=== PATIENT | female | born 1950 | race Caucasian/White ===

== ENCOUNTER 2017-09-05 21:05 | Inpatient (IN) | payer MEDICARE ==
[2017-09-05 22:14] LABS: Sodium 142 mmol/L (135-148)
[2017-09-05 22:15] LABS: Mode NC; Modified Allen's Test POSITIVE; Vent NO
[2017-09-05] MEDS ORDERED: Cefepime 2 GM VIAL IVPB SCH (22:15)
[2017-09-05 22:34] LABS: Lactic Acid - Sepsis 1.1 mmol/L (0.5-2.2)
[2017-09-05 23:03] LABS: Anion Gap 11 mmol/L (10-20); BUN (Urea Nitrogen) 20 mg/dL (9.8-20.1); Calc. Creatinine Clearance 0 mL/min (70-130); Calcium 7.8 mg/dL (7.8-10.44); Carbon Dioxide 22 mmol/L (23-31); Chloride 111 mmol/L (98-107); Estimated GFR-MDRD 82
[2017-09-05] MEDS ORDERED: Potassium Chloride 20 MEQ/100 ML PREMIX BAG ONE (23:59)
[2017-09-06] MEDS ORDERED: Enoxaparin Sodium 40 MG/0.4 ML SYRINGE ONE (00:26)
[2017-09-06] MEDS ORDERED: NS 0.9% w/ 40 MEQ KCL 1,000 ML IV SCH (00:30)
[2017-09-06] MEDS ORDERED: Calcium Carbonate 500 MG ChewTAB PO PRN (01:14)
[2017-09-06] MEDS ORDERED: traMADol HCl 50 MG TAB PO PRN (01:14)
[2017-09-06] MEDS ORDERED: cloNIDine 0.1 MG TAB PO PRN (01:14)
[2017-09-06] MEDS ORDERED: hydrALAZINE 20 MG/ML VIAL SLOW IVP PRN (01:14)
[2017-09-06] MEDS ORDERED: Benzonatate 100 MG CAP PO PRN (01:14)
[2017-09-06] MEDS ORDERED: Senokot 8.6 MG TAB PO PRN ×2 (01:14)
[2017-09-06] MEDS ORDERED: Bisacodyl 5 MG TAB PO PRN ×2 (01:14)
[2017-09-06] MEDS ORDERED: Loratadine 10 MG TAB PO PRN (01:14)
[2017-09-06] MEDS ORDERED: Acetaminophen 325 MG TAB PO PRN (01:14)
[2017-09-06] MEDS ORDERED: Lorazepam 1 MG TAB PO PRN (01:14)
[2017-09-06] MEDS ORDERED: Nitroglycerin 0.4 MG TAB (25 Tab Bottle) SL PRN (01:14)
[2017-09-06] MEDS ORDERED: Mag-Al 1200 mg/1200 mg/30 ML UDCUP PO PRN (01:14)
[2017-09-06] MEDS ORDERED: Diabetic Tussin 200 MG/10 ML UDCUP PO PRN (01:14)
[2017-09-06] MEDS ORDERED: Vancomycin HCl 1 GM in Premix Bag 1 BAG IVPB SCH (01:45)
[2017-09-06] MEDS ORDERED: Senokot S 8.6-50 MG TAB PO PRN (02:08)
[2017-09-06] MEDS ORDERED: Cyclobenzaprine 10 MG TAB PO PRN (02:08)
[2017-09-06 04:39] LABS: Bilirubin Negative (Negative); Blood, Urine Negative (Negative); Glucose, Urine (Dipstick) Negative (Negative); Ketone, Urine 15 mg/dL (Negative); Nitrite Negative (Negative); Protein, Urine (Dipstick) 30 mg/dL (Neg-Trace); Urobilinogen 0.2 mg/dL (0.2-1.0)
[2017-09-06 04:41] LABS: Bacteria/HPF None Seen HPF (None Seen)
[2017-09-06 04:45] LABS: Band 19 % (5-11); Hematocrit 32.1 % (36.0-47.0); Mean Platelet Volume 8.3 fL (7.4-10.4); Neutrophil 78 % (42-75); Nucleated RBC 1 % (0); Red Blood Cell (RBC) Count 3.16 mill/uL (4.20-5.40); White Blood Cell (WBC) Count 8.5 thou/uL (4.8-10.8)
[2017-09-06 04:51] LABS: Iron 24 ug/dL (50-170)
[2017-09-06 04:52] LABS: Anion Gap 10 mmol/L (10-20); BUN (Urea Nitrogen) 18 mg/dL (9.8-20.1); Calc. Creatinine Clearance 61 mL/min (70-130); Calcium 7.6 mg/dL (7.8-10.44); Carbon Dioxide 22 mmol/L (23-31); Chloride 114 mmol/L (98-107); Estimated GFR-MDRD Greater than 90
[2017-09-06 05:02] LABS: Oval Fat Bodies/HPF None Seen HPF (None Seen); RBC/HPF 0-3 HPF (0-3); Renal Epithelial 0-3 HPF (0-3); Sperm/HPF None Seen HPF (None Seen); Transitional Epithelial NONE SEEN HPF (0-3); Trichomonas/HPF None Seen HPF (None Seen)
[2017-09-06 05:03] LABS: Yeast-All Forms 4+ HPF (None Seen)
--- NOTE | 2017-09-06 06:00 | HP ---
DATE OF ADMISSION: 09/06/2017 PRIMARY CARE PHYSICIAN: Chucho Lucero M.D. CHIEF COMPLAINT: Generalized worsening weakness, shortness of breath, cough, subjective fever with chills. HISTORY OF PRESENT ILLNESS: Ms. Price is a 67-year-old female with extensive past medical history of multiple abdominal surgeries including Rocco-en-Y gastrectomy as well as dumping syndrome and hist ory of esophageal perforation in 1998 during an endoscopy, who presented to the [facility] with the above-mentioned complaints. History is mainly obtained by the patient herself and supplemented by her present in the room. Electronic medical records have been reviewed. Tamika acuña was last admitted to our facility in 05/2017 when she had fallen and broken her hip and underwent a surgical fixation and was transferred to rehab. Ms. Price reports that she has been feeling poorly for the entire month of August. She was diagno sed with pneumonia in the beginning of the month and was treated with Z-Efrain. She did have some impr ovement with it, but when she went to follow up with her primary care physician afterwards, she was represcribed a Z-Efrain for some reason. She did once again feel better somewhat. The patient was re-prescribed IV injection of Rocephin and Augmentin for another 7 days during her t hird visit to her primary care physician. Once again, the patient had some improvement in her sympt oms, but reports that she has been feeling very bad for the last few days. She feels progressively getting weaker with poor appetite. She also has cough, subjective fever up to 100.2 or 4 with short ness of breath. She also complains of some chest pain, which is worse upon palpation. She denies a ny nausea, vomiting, or diarrhea. She does report that she has to crush all her pills and take them slowly and is not able to eat bigger pieces of meat. She denies any choking or coughing during eat ing, however. Upon presentation to the emergency room, she was found to be hypoxic with oxygen saturation of 89% o n room air, blood pressure on the lower side 94/53 and has lower systolic in the 80s. Her normal bl ood pressure systolic 90s. She underwent a chest x-ray at the outside emergency room, which showed right-sided pneumonia. She was transferred here to our facility and prior to transfer, she received multiple antibiotics including clindamycin, vancomycin, and Rocephin in addition to steroids and ne bulizers. Here she received cefepime in addition in our emergency room. Because of her relative hypotension and hypoxia, she is being admitted to [facility] at this time. The pa sharyn has adequate oxygen saturation at this time on nasal cannula and is rather stable. PAST MEDICAL HISTORY: 1. Hypothyroidism. 2. History of esophageal perforation. 3. Placement of a Mediport due to poor IV access. 4. Chronic dumping syndrome. 5. Orthostatic hypotension. 6. Chronic low back pain secondary to lumbar radiculopathy. 7. Chronic headache. She is under the care of a neurologist. 8. Anxiety, depression, and bipolar illness. 9. Vitamin D deficiency. 10. Seizure disorder. PAST SURGICAL HISTORY: 1. History of Rocco-en-Y drainage procedure, taken down of a Deisy fundoplication. 2. Appendectomy. 3. Tonsillectomy. 4. Cholecystectomy. 5. Thyroidectomy. 6. Hysterectomy with bilateral salpingo-oophorectomy. 7. Placement of a vascular access, right upper anterior chest. 8. Sympathetic nerve block. 9. Colonoscopy in 2016. ALLERGIES: Include VICODIN, NORCO, SULFA DRUGS, IODINE, IMITREX, LEVAQUIN, TOPAMAX, and ZOFRAN. SOCIAL HISTORY: The patient is and lives with her and her takes care of her at home, helping with her ADLs and IADLs. CODE STATUS: FULL CODE. Discussed with the patient. FAMILY HISTORY: Patient denies any history of premature coronary artery disease or stroke in her kelsey. HOME MEDICATION: Extensive list of home medications as follows Flexeril 10 mg every 8 hours as need ed, amitriptyline 10 mg b.i.d., vitamin B12 of 5000 mcg daily, vitamin D3 of 5000 units daily, calci um 600 mg p.o. daily, vitamin C 500 mg p.o. b.i.d., Valium 10 mg daily, Dilaudid 2 mg p.o. b.i.d., m ultivitamin daily, estrogen 0.625 mg p.o. daily, Prevacid 30 mg daily, Motrin as needed q.6 hours, M iraLax 17 grams daily, levothyroxine 125 mcg daily, Seroquel 400 mg at bedtime, primidone 50 mg at b edtime, Keppra 750 mg p.o. b.i.d., Ambien 10 mg at bedtime as needed, and Senokot as needed. REVIEW OF SYSTEMS: The following complete review of systems was negative, unless otherwise mentione d in the HPI or below: CONSTITUTIONAL: Weight loss or gain, ability to conduct usual activities. SKIN: Rash, itching. EYES: Double vision, pain. ENT/MOUTH: Nose bleeding, neck stiffness, pain, tenderness. CARDIOVASCULAR: Palpitations, dyspnea on exertion, orthopnea. RESPIRATORY: Shortness of breath, wheezing, cough, hemoptysis, fever or night sweats. GASTROINTESTINAL: Poor appetite, abdominal pain, heartburn, nausea, vomiting, constipation, or diar ai. GENITOURINARY: Urgency, frequency, dysuria, nocturia. MUSCULOSKELETAL: Pain, swelling. NEUROLOGIC/PSYCHIATRIC: Anxiety, depression. ALLERGY/IMMUNOLOGIC: Skin rash, bleeding tendency. It is negative for except those mentioned in the history and physical. LABORATORY AND DIAGNOSTIC DATA: CBC shows WBCs at 11.8 with 92% neutrophils, hemoglobin 10.6, plate let count of 143, high MCV and MCH, D-dimer elevated to 2.19. PT 15. ABG done in the emergency shantell m showed pH of 7.36, pCO2 of 39, pO2 of 130 on 2 liters nasal cannula. Serum chemistries show serum potassium 4.1, sodium 141, bicarbonate 22, blood sugar 155, creatinine 0.71, BNP 144, TSH 5.67. Po rtable chest x-ray by my review shows right-sided interstitial and alveolar opacification, possible pneumonia. PHYSICAL EXAMINATION: VITAL SIGNS: Temperature 97.6, pulse of 95, respirations 16, saturating 97% on room air, blood pres sure 116/47. GENERAL: She appears weak, cachectic, and pale, but otherwise in no acute distress. Awake, alert, oriented x3. HEENT: Mucous membrane is moist and pink. No oropharyngeal exudate or erythema. No evidence of or al thrush. The patient reports that she was recently treated with Diflucan and nystatin for oral th vaughn. Head is normocephalic, atraumatic. NECK: Supple without any lymphadenopathy, JVD, or bruit. CHEST: Clear to auscultation without any wheezing, rales, or rhonchi. Rate and rhythm is regular w ithout any murmur, rubs, or gallops. Breath sound was somewhat decreased in the right lung at the b ases. ABDOMEN: Soft, nontender, nondistended, positive bowel sounds. EXTREMITIES: Free of any cyanosis, clubbing, or edema. NEUROLOGIC: Nonfocal, affect, appears depressed. SKIN: Shows few bruises on her arms. Otherwise, feels warm and dry to touch. NEUROLOGIC: Nonfocal. IMPRESSION AND PLAN: 1. Hypoxic respiratory failure, likely secondary to pneumonia. Given the patient's elevated D-dime r, a VQ scan has been ordered. She has received 1 dose of Lovenox 1 mg/kg in the emergency room. C linical likelihood of pulmonary embolism is low at this time. She will be treated with broad spectr um IV antibiotics for pneumonia. Given her extensive history of gastrectomy and difficulty handling bigger pills, aspiration pneumonia remains a bigger concern. 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 The patient has 3 rounds of antibiotics without any improvement. We will also check her for influenza and check blood cultures given the presence of a Mediport in her presentati on with a somewhat hypotension and hypoxia. 2. Severe deconditioning. We will consult occupational therapy and physical therapy for further ev aluation. The patient may benefit from rehabilitation prior to discharge home. The patient is some what anemic with macrocytosis. She takes vitamin B12 and folic acid supplement. We will check her iron indices and replace iron if needed. 3. Hypothyroidism. The patient's TSH is somewhat on the higher side. We will continue her levothy roxine at this time and sent for free T3 and T4. She may benefit from increasing the dose of levoth yroxine prior to discharge if her free T3 and T4 are indeed low. 4. History of seizure disorder. We will restart her Keppra as well as her primidone. The patient is currently seizure free. 5. Chronic pain. The patient is unfortunately on high doses of Dilaudid as well as has been using Flexeril, ibuprofen on as needed basis. She also seems to be taking Valium on a daily basis. I ernesto pect that some of her weakness is secondary to chronic pain medications. We will try to minimize an d use only as needed medications. Please note that she reports an allergy to NORCO. 6. History of bipolar disorder. Continue home medications of Khadijahl. 7. History of dumping syndrome, small frequent meals as the patient does at home. 8. History of Vitamin D deficiency. Continue with her home medications of Vitamin D supplement. 9. History of esophageal perforation. At this time, the patient is rather stable and I doubt that she has recurrence of the perforation. However, given the patient's symptoms of pain in her throat, consideration should be given to her CT scan or repeat EGD by auto air conditioning mechanic. I have given the patient the option and at this time, she wants to defer it further and would rather go see her karla roenterologist, Dr. Almaraz at [facility]. CODE STATUS: FULL CODE. DISPOSITION: The patient will be admitted to IMCU for hypoxia and hypotension with pneumonia and ru le out sepsis. Further management will depend upon her clinical course. Estimated length of stay a t this time is at least 2 to 3 midnights.
[2017-09-06] MEDS: Levothyroxine Sodium 125 MCG TAB PO SCH (06:02)
[2017-09-06] MEDS ORDERED: FLU VACC TS2017-18 (>65YR) 0.5 ML SYRINGE IM ONE (09:00)
[2017-09-06] MEDS: Amitriptyline HCl 10 MG TAB PO SCH ×2 (09:41→22:06)
[2017-09-06] MEDS: Ascorbic Acid 500 mg Chewable Tablet PO SCH ×2 (09:41→22:07)
[2017-09-06] MEDS: Multivitamin W/ Minerals 1 TAB PO SCH (09:41)
[2017-09-06] MEDS: Famotidine 20 MG TAB PO SCH ×2 (09:41→22:06)
[2017-09-06] MEDS: Calcium Carbonate 600 MG TAB PO SCH (09:42)
[2017-09-06] MEDS: levETIRAcetam 500 mg/5 ml Oral Solution PO SCH ×2 (09:43→22:05)
[2017-09-06] MEDS: Enoxaparin Sodium 30 MG/0.3 ML SYRINGE SC SCH (09:52)
[2017-09-06] MEDS: Cyanocobalamin (Vitamin B-12) 1,000 MCG TAB PO SCH (09:59)
[2017-09-06] MEDS ORDERED: Cefepime 2 GM in Sodium Chloride 0.9% 100 ML IVPB SCH (10:00)
[2017-09-06] MEDS: HYDROcodone/Acetaminophen 5/325 mg Tablet PO PRN (10:11)
--- NOTE | 2017-09-06 10:13 | CON ---
DATE OF CONSULTATION: 09/06/2017 CONSULTING PHYSICIAN: Dr. Flores. REASON FOR CONSULTATION: Pneumonia. HISTORY OF PRESENT ILLNESS: This is a 67-year-old female from the [place] area. She was taken to the emergency room there yesterday with complaints of cough and shortness of breath. She was di agnosed with pneumonia. She tells me she has had pneumonia constantly since June. She was initia lly treated with a Z-Efrain. She went back to her doctor and was prescribed something different, which was not an antibiotic several days later. Eventually, she was seen by Dr. Lucero's partner and was given an IM injection of Rocephin and was prescribed Augmentin. She could not swallow the Augmenti n pills and did not think any have gotten into her stomach. She had not had any fever until the day before admission when she says she got up to 100.9. She has been coughing up greenish sputum. She apparently has dysphagia for pills, but says she can eat and drink okay. PAST MEDICAL HISTORY: 1. Chronic pain. 2. Esophageal perforation. 3. MediPort placement due to poor IV access. 4. History of Rocco-en-Y drainage procedure after takedown of a Deisy fundoplication. 5. Chronic dumping syndrome. 6. Radiculopathy. 7. Bipolar disorder. 8. Tonsillectomy. 9. Appendectomy. 10. Cholecystectomy. 11. Thyroidectomy. 12. Hysterectomy with bilateral salpingo-oophorectomy. 13. Colonoscopy. ALLERGIES: VICODIN, NORCO, SULFA DRUGS, IODINE, IMITREX, LEVAQUIN, TOPAMAX, ZOFRAN. SOCIAL HISTORY: Does not smoke, does not consume alcohol. Lives with her . FAMILY MEDICAL HISTORY: Unremarkable. MEDICATIONS: Prior to admission, Flexeril, amitriptyline, vitamin B12, vitamin D3, calcium, vitamin C, Valium, Dilaudid, multivitamin, estrogen, Prevacid, Motrin, MiraLax, levothyroxine, Seroquel, pr imidone, Keppra, Ambien, Senokot. REVIEW OF SYSTEMS: Positive for pain, shortness of breath, cough, and congestion. PHYSICAL EXAMINATION: VITAL SIGNS: Temperature 97.8, pulse 85, respirations 16, O2 sat 100%, blood pressure 123/65. HEENT: Unremarkable. NECK: Without adenopathy or JVD. LUNGS: She has a few inspiratory crackles on the right base; left side is clear. CARDIAC: S1, S2 regular, without murmur. ABDOMEN: Soft, nontender. Multiple surgical scars present. EXTREMITIES: No clubbing, cyanosis, or edema. LABORATORY DATA: White blood cell count 8.5, hematocrit 32.1, platelet count 151. D-dimer 2.2. PH 7.36, PCO2 of 39, PO2 of 130, that was on 2 liters nasal cannula. Sodium 142, potassium 4.4, chlor kerrie 114, CO2 of 22, BUN 18, creatinine is 0.6, glucose 171. X-RAY FINDINGS: Chest x-ray shows some scattered right-sided infiltrative changes. She also has a MediPort in place. ASSESSMENT: 1. Pneumonia. 2. Fever. 3. Chronic pain. 4. History of multiple medical problems as listed above. RECOMMENDATIONS: 1. I agree with a ventilation perfusion scan. 2. I agree with current IV antibiotics, cefepime and vancomycin. 3. I will follow the patient with you.
[2017-09-06] MEDS: Cefepime 2 GM, Syringe 2.5 ML in Sterile Water 10 ML SLOW IVP SCH ×2 (11:20→22:05)
[2017-09-06] MEDS ORDERED: Chloraseptic Spray 180 ml Bottle PO PRN (12:11)
[2017-09-06] MEDS ORDERED: Hyoscyamine Sulfate SL 0.125 mg Tablet SL PRN (12:11)
[2017-09-06] MEDS ORDERED: Ibuprofen 200 MG TAB PO PRN (12:11)
[2017-09-06] MEDS ORDERED: Zolpidem Tartrate 5 MG TAB PO PRN (12:19)
--- NOTE | 2017-09-06 14:18 | NM ---
VENTILATION PERFUSION STUDY: Date: 09/06/17 HISTORY: Dyspnea. RADIOPHARMACEUTICAL: 6.2 mCi technetium-99m labeled MAA, IV, for the perfusion portion of the study, and 10.2 mCi Xenon-1 33, gas inhaled. FINDINGS: On the anterior images of the ventilation, as well as perfusion study, there is a small rounded phot openic defect seen in the lateral right upper lung zone which corresponds to MediPort noted on recen t chest x-ray. There is otherwise no ventilation defect identified. Perfusion imaging demonstrates q uestion of very tiny subsegmental defects at each lung base with questionable matched defect on the ventilation portion of the study. No additional segmental or subsegmental perfusion defect is seen w ithin the lungs bilaterally. Chest x-ray on 09/05/17 shows interstitial opacities in the right lung. IMPRESSION: Low probability for pulmonary embolus. POS: TABBY
--- NOTE | 2017-09-06 16:04 | RAD ---
MODIFIED BARIUM SWALLOW WITH SPEECH THERAPIST: History: 67-year-old female with history of dysphagia and feeding difficulty. Fluoroscopy time: 2.1 minutes with a dose of 1.004 mGy*cm\S\2. FINDINGS: Patient was given multiple consistencies and evaluated in upright and lateral projection. There was some minimal penetration with thin liquids and thicker liquids, particularly with cup sip. There is considerable pooling within the vallecula of all sequences with patient having difficulty clearing t his with re-swallow. No angella aspiration. IMPRESSION: Penetration, particularly with cup swallow, with pooling in the vallecula with patient having diffic ulty clearing this with re-swallow. For additional findings and recommendations, please see speech therapy report. POS: TABBY
[2017-09-06] MEDS: Primidone 50 MG TAB PO SCH (22:06)
[2017-09-06] MEDS: HYDROmorphone 2 MG TAB PO SCH (22:07)
[2017-09-06] MEDS: Polyethylene Glycol 3350 17 GM Packet PO SCH (22:08)
[2017-09-07] MEDS: Vancomycin HCl 750 MG in Sodium Chloride 0.9% 250 ML 250 ML IVPB SCH (01:10)
[2017-09-07] MEDS: Levothyroxine Sodium 125 MCG TAB PO SCH (06:10)
[2017-09-07] MEDS: Enoxaparin Sodium 30 MG/0.3 ML SYRINGE SC SCH (08:38)
[2017-09-07] MEDS: HYDROmorphone 2 MG TAB PO SCH ×2 (08:38→21:14)
[2017-09-07] MEDS: Ascorbic Acid 500 mg Chewable Tablet PO SCH ×2 (08:39→21:18)
[2017-09-07] MEDS: Amitriptyline HCl 10 MG TAB PO SCH ×2 (08:39→21:34)
[2017-09-07] MEDS: Cyanocobalamin (Vitamin B-12) 1,000 MCG TAB PO SCH (08:39)
[2017-09-07] MEDS: Calcium Carbonate 600 MG TAB PO SCH (08:40)
[2017-09-07] MEDS: Famotidine 20 MG TAB PO SCH ×2 (08:40→21:13)
[2017-09-07] MEDS: Multivitamin W/ Minerals 1 TAB PO SCH (08:40)
[2017-09-07] MEDS: levETIRAcetam 500 mg/5 ml Oral Solution PO SCH ×2 (08:41→21:35)
--- NOTE | 2017-09-07 09:00 | PRG ---
DATE OF SERVICE: 09/07/2017 SUBJECTIVE: She is doing well, coughing less than yesterday. PHYSICAL EXAMINATION: VITAL SIGNS: Temperature 97.7, pulse 89, respiration 20, 95%, blood pressure 128/66. HEENT: Unremarkable. NECK: No JVD. CHEST: Clear. CARDIAC: S1 and S2 regular. ABDOMEN: Soft. EXTREMITIES: No edema. LABORATORY DATA: No new labs were reported today. ASSESSMENT: 1. Right upper lobe pneumonia. 2. Fever. 3. Chronic pain. PLAN: She can transfer out to the floor for continuation of her IV antibiotics. Her ventilation pe rfusion scan was low probability. Therefore, she does not require anything beyond prophylactic anti coagulation to prevent DVT.
[2017-09-07] MEDS: HYDROcodone/Acetaminophen 5/325 mg Tablet PO PRN ×2 (11:01→15:10)
[2017-09-07] MEDS: Cefepime 2 GM, Syringe 2.5 ML in Sterile Water 10 ML SLOW IVP SCH ×2 (11:04→21:43)
--- NOTE | 2017-09-07 14:25 | PDOC.PN ---
- Subjective Encounter Start Date: 09/07/17 Encounter Start Time: 07:40 Pt seen for followup re: pneumonia. Reports cough. denies chest pain, shortness of breath, fevers or chills. - Objective MAR Reviewed: Yes Vital Signs & Weight: Vital Signs (12 hours) Temp Pulse Resp BP Pulse Ox 09/07/17 12:13 97.5 F L 83 16 95 09/07/17 11:50 97.5 F L 83 16 147/81 H 95 09/07/17 11:10 98.0 F 87 20 128/80 96 09/07/17 08:00 97.7 F 89 20 95 09/07/17 07:04 97.7 F 89 20 128/66 95 09/07/17 04:00 89 16 134/74 97 Weight Admit Weight 99 lb 1.6 oz Weight 99 lb 1.6 oz I&O: 09/06/17 09/07/17 09/08/17 06:59 06:59 06:59 Intake Total 1057 1380 Output Total 130 350 Balance 927 1030 Result Diagrams: 09/06/17 04:20 09/06/17 04:20 EKG Reviewed by me: Yes (Tele: NSR) Phys Exam - Physical Examination Constitutional: NAD HEENT: PERRLA, moist MMs, sclera anicteric, oral pharynx no lesions Neck: no nodes, no JVD, supple, full ROM Respiratory: no wheezing, no rales, no rhonchi, clear to auscultation bilateral Cardiovascular: RRR, no rub Gastrointestinal: soft, non-tender, no distention, positive bowel sounds Musculoskeletal: pulses present Neurological: moves all 4 limbs Lymphatic: no nodes Psychiatric: normal affect, A&O x 3 Skin: no rash, normal turgor, cap refill <2 seconds Dx/Plan (1) Pneumonia involving right lung Code(s): J18.9 - PNEUMONIA, UNSPECIFIED ORGANISM Status: Acute (2) Seizure disorder Code(s): G40.909 - EPILEPSY, UNSP, NOT INTRACTABLE, WITHOUT STATUS EPILEPTICUS Status: Chronic (3) Hypothyroidism Code(s): E03.9 - HYPOTHYROIDISM, UNSPECIFIED Status: Chronic (4) Chronic headache Code(s): R51 - HEADACHE Status: Chronic (5) History of dumping syndrome Code(s): Z87.19 - PERSONAL HISTORY OF OTHER DISEASES OF THE DIGESTIVE SYSTEM Status: Chronic - Plan continue antibiotics, PT/OT, speech therapy, DVT proph w/lovenox * . Continue IV cefepime, IV vancomycin. Continue primidone, keppra. Continue synthroid. Ambulate pt. Review of Systems - Review of Systems Constitutional: negative: Fever, Chills, Sweats, Weakness, Malaise Respiratory: negative: Cough, Dry, Shortness of Breath, Hemoptysis, SOB with Excertion, Pleuritic Pain, Sputum, Wheezing Cardiovascular: negative: Chest Pain, Palpitations, Orthopnea, Paroxysmal Noc. Dyspnea, Edema, Light Headedness Gastrointestinal: negative: Nausea, Vomiting, Abdominal Pain, Diarrhea, Constipation, Melena, Hematochezia Genitourinary: negative: Dysuria, Frequency, Incontinence, Hematuria, Retention - Medications/Allergies Allergies/Adverse Reactions: Allergies Allergy/AdvReac Type Severity Reaction Status Date / Time Iodinated Contrast- Oral and Allergy Verified 05/08/17 22:24 IV Dye ondansetron Allergy Verified 05/09/17 02:24 [From Zofran (as hydrochloride)] Phenothiazines Allergy Verified 05/09/17 02:24 povidone-iodine Allergy Verified 05/09/17 02:24 prochlorperazine Allergy Verified 05/09/17 02:24 Sulfa (Sulfonamide Allergy Verified 05/09/17 02:24 Antibiotics) sulfisoxazole Allergy Verified 05/09/17 02:24 sumatriptan Allergy Verified 05/09/17 02:24 Thioxanthenes Allergy Verified 05/09/17 02:25 Medications: Current Medications Acetaminophen (Tylenol) 650 mg PO Q4H PRN PRN Reason: Headache/Fever or Pain Hydrocodone Bitart/Acetaminophen (Assaria 5/325) 1 tab PO Q4H PRN PRN Reason: Moderate Pain (4-6) Last Admin: 09/07/17 11:01 Dose: 1 tab Al Hydroxide/Mg Hydroxide (Maalox) 30 ml PO Q6H PRN PRN Reason: Heartburn or Indigestion Amitriptyline HCl (Elavil) 10 mg PO BID [facility] Last Admin: 09/07/17 08:39 Dose: 10 mg Ascorbic Acid (Vitamin C) 500 mg PO BID [facility] Last Admin: 09/07/17 08:39 Dose: 500 mg Benzonatate (Tessalon) 100 mg PO Q4H PRN PRN Reason: Cough Bisacodyl (Dulcolax) 10 mg PO DAILYPRN PRN PRN Reason: Constipation Calcium Carbonate (Tums) 1,000 mg PO Q4H PRN PRN Reason: Heartburn or Indigestion Calcium Carbonate (Caltrate) 600 mg PO DAILY [facility] Last Admin: 09/07/17 08:40 Dose: 600 mg Cholecalciferol (Vitamin D3) 5,000 units PO DAILY [facility] Last Admin: 09/07/17 08:40 Dose: 5,000 units Clonidine (Catapres) 0.1 mg PO Q4H PRN PRN Reason: Systolic BP > 160 Cyanocobalamin (Vitamin B-12) 5,000 mcg PO DAILY [facility] Last Admin: 09/07/17 08:39 Dose: 5,000 mcg Cyclobenzaprine HCl (Flexeril) 10 mg PO Q8H PRN PRN Reason: Anxiety/Sleep/Spasm Enoxaparin Sodium (Lovenox) 30 mg SC 0900 [facility] Last Admin: 09/07/17 08:38 Dose: 30 mg Famotidine (Pepcid) 20 mg PO BID [facility] Last Admin: 09/07/17 08:40 Dose: 20 mg Guaifenesin (Robitussin Sf) 200 mg PO Q4H PRN PRN Reason: Cough Hydralazine HCl (Apresoline) 10 mg SLOW IVP Q4H PRN PRN Reason: Systolic BP > 170 Hydromorphone HCl (Dilaudid) 2 mg PO BID [facility] Last Admin: 09/07/17 08:38 Dose: 2 mg Hyoscyamine Sulfate (Levsin Sl) 0.125 mg SL Q6HR PRN PRN Reason: Pain Vancomycin HCl 750 mg/ Sodium (Chloride) 250 mls @ 250 mls/hr IVPB 0100 [facility] Last Admin: 09/07/17 01:10 Dose: 250 mls Cefepime HCl 2 gm/ Syringe 2.5 (ml/ Sterile Water) 12.5 mls @ 150 mls/hr SLOW IVP 1000,2200 [facility] Last Admin: 09/07/17 11:04 Dose: 12.5 mls Ibuprofen (Motrin) 400 mg PO Q6H PRN PRN Reason: Pain Iron/Minerals/Multivitamins (Theragran M) 1 tab PO DAILY [facility] Last Admin: 09/07/17 08:40 Dose: 1 tab Levetiracetam (Keppra Oral Solution) 750 mg PO BID [facility] Last Admin: 09/07/17 08:41 Dose: 750 mg Levothyroxine Sodium (Synthroid) 125 mcg PO 0600 [facility] Last Admin: 09/07/17 06:10 Dose: 125 mcg Loratadine (Claritin) 10 mg PO DAILYPRN PRN PRN Reason: Sinus Symptoms Lorazepam (Ativan) 1 mg PO Q4H PRN PRN Reason: Anxiety/Agitation Nitroglycerin (Nitrostat) 0.4 mg SL Q5MIN PRN PRN Reason: Chest Pain Pantoprazole Sodium (Protonix) 40 mg PO DAILY [facility] Last Admin: 09/07/17 08:39 Dose: 40 mg Phenol (Chloraseptic [place] 180 Ml Bot) 1 ml PO BIDPRN PRN PRN Reason: Sore Throat Last Admin: 09/06/17 22:05 Dose: 1 spr Polyethylene Glycol (Miralax) 17 gm PO [facility] Last Admin: 09/06/17 22:08 Dose: Not Given Primidone (Mysoline) 50 mg PO HS [facility] Last Admin: 09/06/17 22:06 Dose: 50 mg Quetiapine Fumarate (Seroquel) 400 mg PO HS [facility] Last Admin: 09/06/17 22:04 Dose: 400 mg Senna (Senokot) 2 tab PO HSPRN PRN PRN Reason: Constipation Senna/Docusate Sodium (Senokot S) 1 tab PO BIDPRN PRN PRN Reason: constipation Sodium Chloride (Flush - Normal Saline) 10 ml IVF Q12HR [facility] Last Admin: 09/07/17 08:41 Dose: 10 ml Sodium Chloride (Flush - Normal Saline) 10 ml IVF PRN PRN PRN Reason: Saline Flush Tramadol HCl (Ultram) 50 mg PO Q4H PRN PRN Reason: Moderate Pain (4-6) Zolpidem Tartrate (Ambien) 10 mg PO HS PRN PRN Reason: Insomnia
[2017-09-07] MEDS: Phenazopyridine HCl 97.5 MG TABLET PO SCH (21:13)
[2017-09-07] MEDS: Polyethylene Glycol 3350 17 GM Packet PO SCH (21:18)
[2017-09-07] MEDS: Primidone 50 MG TAB PO SCH (21:33)
[2017-09-08 00:34] LABS: Vancomycin, Trough 9.8 ug/mL
[2017-09-08] MEDS ORDERED: Vancomycin HCl 1 GM in Premix Bag 1 BAG IVPB SCH (01:00)
[2017-09-08] MEDS: Levothyroxine Sodium 125 MCG TAB PO SCH (06:12)
[2017-09-08 07:51] VITALS: BP 137/76; TEMP 98
[2017-09-08] MEDS: Vancomycin HCl 750 MG in Sodium Chloride 0.9% 250 ML 250 ML IVPB SCH (09:20)
[2017-09-08] MEDS: HYDROmorphone 2 MG TAB PO SCH (09:26)
[2017-09-08] MEDS: Amitriptyline HCl 10 MG TAB PO SCH (09:27)
[2017-09-08] MEDS: Famotidine 20 MG TAB PO SCH (09:27)
[2017-09-08] MEDS: levETIRAcetam 500 mg/5 ml Oral Solution PO SCH (09:28)
[2017-09-08] MEDS: Phenazopyridine HCl 97.5 MG TABLET PO SCH (09:28)
[2017-09-08] MEDS: Enoxaparin Sodium 30 MG/0.3 ML SYRINGE SC SCH (09:28)
[2017-09-08] MEDS: Multivitamin W/ Minerals 1 TAB PO SCH (09:28)
[2017-09-08] MEDS: Calcium Carbonate 600 MG TAB PO SCH (09:29)
[2017-09-08] MEDS: Cyanocobalamin (Vitamin B-12) 1,000 MCG TAB PO SCH (09:29)
[2017-09-08] MEDS: Ascorbic Acid 500 mg Chewable Tablet PO SCH (09:29)
--- NOTE | 2017-09-08 09:37 | PRG ---
DATE OF SERVICE: 09/08/2017 SUBJECTIVE: The patient seems to be doing well except for thrush. PHYSICAL EXAMINATION: VITAL SIGNS: Temperature is 98.0, pulse 90, respirations 16, O2 sat 97%, and blood pressure 137/76. HEENT: Remarkable for white papular lesions on the tongue. NECK: Without adenopathy or JVD. CHEST: Clear without wheezing. CARDIAC: S1 and S2 regular. ABDOMEN: Soft. EXTREMITIES: No edema. LABORATORY DATA: No labs were obtained today. ASSESSMENT: 1. Right upper lobe pneumonia. 2. Chronic pain. 3. Thrush. 4. Aspiration. PLAN: 1. Diflucan for 3 days for the thrush. I would be okay with her cycling over to oral antibiotics - I would think Omnicef would be a reasonable choice. 2. Should be stable for discharge at any time.
[2017-09-08] MEDS: Cefepime 2 GM, Syringe 2.5 ML in Sterile Water 10 ML SLOW IVP SCH (09:38)
--- NOTE | 2017-09-08 11:06 | PQF ---
LE CAVAZOS AKASH M MD [id number] [facility]- B05 [id number] CLINICAL DOCUMENTATION IMPROVEMENT CLARIFICATION FORM: ICD-10 Updated PLEASE DO AN ADDENDUM TO THE PROGRESS NOTE WITH ANY DOCUMENTATION UPDATES OR ADDITIONS AND CARRY THROUGH TO DC SUMMARY. THANK YOU. DATE: 09-08-17 ATTN: DR. ARROYO Please exercise your independent, professional judgment in responding to the clarification form. Clinical indicators are provided on the bottom of this form for your review Please check appropriate box(s): [ ] Aspiration Pneumonia [ ] Empirically treating Gram Negative Pneumonia [ ] Empirically treating Anaerobic Pneumonia [ ] Pneumonia secondary to (specify organism / underlying disease) [ ] Simple Pneumonia (community acquired - nosocomial) [ ] Pneumonia of unknown etiology [ ] Other diagnosis [ ] Unable to determine In addition, please specify: Present on Admission (POA): [ ] Yes [ ] No [ ] Unable to determine For continuity of documentation, please document condition throughout progress notes and discharge summary. Thank You. CLINICAL INDICATORS - SIGNS / SYMPTOMS / LABS H&P: GIVEN HER EXTENSIVE HX OF GASTRECTOMY AND DIFFICULTY HANDLING BIGGER PILLS , ASPIRATION PNA REMAINS A BIGGER CONCERN HYPOXIC RESP FAILURE D/T PNA R/O SEPSIS 09-08 PN PULM: RIGHT UPPER LOBE PNA ASPIRATION THRUSH RISK FACTORS H&P: HX BORIS-EN-Y GASTRECTOMY; DUMPING SYNDROME HX ESOPHAGEAL PERFORATION SEVERE DECONDITIONING CACHECTIC / WEAK TREATMENTS: CPOE: CU MAR - ABX MAXIPIME 09-06 VANCOMYCIN 09-07 MODIFIED BARIUM SWALLOW - PENETRATION, PARTICULARLY W/ CUP SWALLOW, W/ POOING IN THE VALLECULA W/ PT HAVING DIFFICULTY CLEARING THIS W/ RE-SWALLOW. THANK YOU AISHA (This form is maintained as a part of the permanent medical record) 2014 [employer]. All Rights Reserved Aisha Clark RN, BS [email or web address] Cell HELEN HAYES HOSPITALSachin
--- NOTE | 2017-09-08 11:21 | CON ---
DATE OF CONSULTATION: 09/08/2017 CHIEF COMPLAINT: Trouble swallowing. HISTORY OF PRESENT ILLNESS: Ms. Price is a 67-year-old woman who has been treated for pneumonia ov er the last month. She was admitted on 09/06/2017 with ongoing symptoms of weakness, cough and shor tness of breath. She was treated with IV antibiotics. She has been on oral antibiotics prior to th at earlier in the month. GI was consulted, because she has been having trouble swallowing. She had a swallowing study by Speech Pathology and was not felt to be safe for liquid or solid consistencie s due to aspiration risk. The patient decided she would not want alternative means of feeding and t herefore has chosen to discontinue oral diet with optimal textures for aspiration risk. She does co mplain that she has had dysphagia for the last one week. When she swallows pills or meat, she feels like food gets stuck a little above the level of the sternal notch. She has noticed thrush over th e last week. PAST MEDICAL HISTORY: Hypothyroidism, seizure disorder, bipolar disorder, chronic back pain and hea dache, dumping syndrome. PAST SURGICAL HISTORY: She had a cholecystectomy. She had an esophageal perforation and problems w ith a Deisy fundoplication and ultimately underwent a Rocco-en-Y gastrectomy. She has had tonsillec fernando, appendectomy. She reports colonoscopy a few months ago by Dr. Almaraz. FAMILY HISTORY: Negative for GI malignancies. SOCIAL HISTORY: No alcohol, tobacco or drugs. Her assists her with her activities of daily living. ALLERGIES: VICODIN, NORCO, SULFA, IODINE, IMITREX, LEVAQUIN, TOPAMAX, ZOFRAN. CURRENT MEDICATIONS: Cefepime, calcium carbonate, amitriptyline, vitamin C, vitamin D and B12, enox aparin, famotidine, fluconazole 100 mg p.o. daily, multiple vitamin with iron, Keppra, levothyroxine , pantoprazole, polyethylene glycol, primidone, quetiapine, vancomycin. REVIEW OF SYSTEMS: Negative x10 systems reviewed except as stated in the history of present illness . PHYSICAL EXAMINATION: VITAL SIGNS: Temperature 98.0, pulse 90, oxygen saturation 94%, blood pressure 137/76. GENERAL: She is in no acute distress. NEUROLOGIC: She is alert and oriented x3; however, she has a lot of trouble recalling details of he r medical history and her helps with that. HEENT: Her eyes have no scleral icterus. Oropharynx currently appears clear. I do not appreciate any thrush on her tongue, oropharynx now. NECK: She has no cervical or supraclavicular lymphadenopathy. LUNGS: Clear to auscultation bilaterally. HEART: Regular rate and rhythm. ABDOMEN: Soft, mild tenderness in the epigastric region without guarding. Bowel sounds are present . EXTREMITIES: No lower extremity edema. LABORATORY DATA: White blood cell count 8.5, hemoglobin 9.9, platelets 151. INR 1.2. Creatinine 0 .63. Iron 24, TIBC 116. IMPRESSION: 1. Dysphagia. She complains of solid food dysphagia about the level of the sternal notch with larg er pills and meats for the last week. She has had thrush over this time period. She has some disco mfort further down with swallowing as well. This all could be due to thrush. She also could have a stricture. She could have esophageal candidiasis. She has been on multiple antibiotics for pneumo yovana over the last month. 2. History of esophagojejunostomy with Rocco-en-Y gastrectomy after complications with fundoplicatio n surgery. 3. The impression is aspiration with abnormal modified barium swallow by Speech Pathology. She was felt to be high risk for aspiration with solid and liquid consistencies. The patient wishes to ulices at this with optimizing the consistency of her diet and does not wish to consider alternative means for nutrition. RECOMMENDATIONS: 1. EGD was offered to evaluate for stricture and for Nella esophagitis. She does not wish to und ergo endoscopy at this time; however, given the thrush and the esophageal symptoms, I would extend t he fluconazole to cover as if she has Nella esophagitis. Therefore, we will give 200 mg of the fl uconazole today and then continue treatment to complete a 14 day course. 2. If the swallowing trouble persists after treatment of the fungal infection, then she is encourag ed to follow up with Dr. Almaraz in the office at which point outpatient endoscopy can be considered. She has also seen Dr. Nicholson in our office in the more distant past and she can follow up in [facility] an alternative.
[2017-09-08] MEDS ORDERED: Fluconazole 100 MG TAB PO SCH ×3 (11:30→12:00)
--- NOTE | 2017-09-08 12:14 | PDOC.PN ---
- Subjective Encounter Start Date: 09/08/17 Encounter Start Time: 12:13 Patient seen at bedside. No overnight events, no further SOB. Still has mild dysphagia - Objective Vital Signs & Weight: Vital Signs (12 hours) Temp Pulse Resp BP Pulse Ox 09/08/17 08:00 98.0 F 90 16 94 L 09/08/17 07:35 98.0 F 90 16 137/76 97 09/08/17 03:39 97.5 F L 84 16 129/78 97 Weight Admit Weight 99 lb 1.6 oz Weight 99 lb 1.6 oz I&O: 09/07/17 09/08/17 09/09/17 06:59 06:59 06:59 Intake Total 1380 550 Output Total 350 Balance 1030 550 Result Diagrams: 09/06/17 04:20 09/06/17 04:20 Phys Exam - Physical Examination Constitutional: NAD HEENT: moist MMs positive thrush Neck: no JVD Respiratory: clear to auscultation bilateral Cardiovascular: RRR Gastrointestinal: soft Musculoskeletal: pulses present Neurological: moves all 4 limbs Psychiatric: A&O x 3 Dx/Plan (1) Esophageal thrush Code(s): B37.81 - CANDIDAL ESOPHAGITIS Status: Acute (2) Pneumonia involving right lung Code(s): J18.9 - PNEUMONIA, UNSPECIFIED ORGANISM Status: Acute Qualifiers: Lung location: unspecified part of lung (3) History of dumping syndrome Code(s): Z87.19 - PERSONAL HISTORY OF OTHER DISEASES OF THE DIGESTIVE SYSTEM Status: Chronic (4) Hypothyroidism Code(s): E03.9 - HYPOTHYROIDISM, UNSPECIFIED Status: Chronic (5) Seizure disorder Code(s): G40.909 - EPILEPSY, UNSP, NOT INTRACTABLE, WITHOUT STATUS EPILEPTICUS Status: Chronic - Plan cont current plan of care, plan discussed w/ family, continue antibiotics, out of bed/ambulate * Continue with Diflucan x 2 weeks. * Omnicef * Spoke with patient at bedside about aspiration risks. She understands this, and is willing to eat with a modified diet. She doesn't want alternative feeding methods at this time and doesn't want an EGD. She states she will rethink this after Diflucan therapy. * D/C Home
--- NOTE | 2017-09-08 16:00 | DIS ---
DATE OF ADMISSION: 09/05/2017 DATE OF DISCHARGE: 09/08/2017 DISCHARGE DISPOSITION: Home. DISCHARGE FOLLOWUP: 1. With Dr. Lucero: 2. With Dr. Almaraz, the GI physician, in 2 weeks. DISCHARGE DIAGNOSES: 1. Right upper lobe pneumonia, questionable aspiration. 2. Dysphagia secondary to suspected Candidal esophagitis. 3. Hypothyroidism. 4. Chronic dumping syndrome. 5. Seizure disorder. DISCHARGE MEDICATIONS: 1. Elavil 10 mg p.o. b.i.d. 2. Vitamin C supplements. 3. Calcium 600 mg p.o. daily. 4. Omnicef 300 mg p.o. b.i.d. for the next 7 days. 5. Vitamin D supplements. 6. Flexeril 10 mg p.o. t.i.d. p.r.n. 7. Valium 10 mg p.o. daily. 8. Fluconazole 100 mg p.o. daily for the next 2 weeks. 9. Dilaudid 2 mg p.o. b.i.d. 10. Ibuprofen 400 p.o. q.6 h. p.r.n. 11. Prevacid 30 mg p.o. daily. 12. Levothyroxine 100 mcg p.o. daily. 13. Primidone 50 mg p.o. at bedtime. 14. Seroquel 400 mg p.o. at bedtime. 15. Ambien 10 mg p.o. at bedtime p.r.n. 16. Keppra 750 mg p.o. b.i.d. INPATIENT CONSULTATIONS: 1. Dr. Arango, Pulmonary Critical Care. 2. Dr. Wakefield, Gastroenterology. INPATIENT PROCEDURES: None. INPATIENT RADIOGRAPHIC EXAMINATIONS: 1. CT scan which revealed low probability for pulmonary embolus. 2. Chest x-ray which revealed evidence for right lung pneumonia. 3. Modified barium swallow which revealed penetration particularly with cup swallow with pooling in the vallecula and the patient having difficulty clearing this with the re-swallow, there is no jhony k aspiration. BRIEF HOSPITAL COURSE: Ms. Kristen Price is a 67-year-old female who presented to the emergency room with generalized weakness as well as shortness of breath and cough. She states that she has been tr eated as an outpatient with antibiotics for suspected pneumonia; however, her symptoms did not impro ve. She also stated she was having some dysphagia. On arriving to the emergency room, she was foun d to be hypoxic with a saturation of 89% on room air. She was hypotensive in the 90s. She was then transferred to [facility] for higher level of care. She received IV antibiotics as well as nebul izers and steroids. She was then admitted to the Critical Care Unit for hypoxic respiratory failure . This was initially thought to be secondary to pneumonia. She was given broad spectrum antibiotic s. She also had an elevated D-dimer and a V/Q scan was subsequently ordered which revealed low prob ability of pulmonary embolism. There was a question that the patient may be having aspiration episo brie. As her blood pressure and clinical status improved, she was then transferred to medical floor. In regards to her aspiration, the patient did not want an endoscopy or any further treatment. She did not want any alternative methods of feeding. She did not want endoscopy to evaluate for strict ure or for Nella esophagitis. She was placed on fluconazole 100 mg daily with a first dose of 200 mg. She is to complete a full 2-week course. In regards to her pneumonia, her blood cultures have been negative at 48 hours as well as urine cultures have been negative. She will be transitioned t o oral Omnicef at this time. She has been cleared for discharge by Gastroenterology as well as Pulm [facility]. I spoke with the patient at bedside and she understands the risks of aspiration. At this ti me, she does not want to undergo an endoscopy or any further alternative feeding methods. She under stands the risks of aspiration. Education has been given about aspiration precautions. She states that she will finish a 2-week course of fluconazole and re-evaluated for an endoscopy if needed by h er primary mobile pet groomer, Dr. Almaraz or Dr. Wakefield if she desires. The patient is doing well. She denies any fevers. She is clinically appropriate for discharge home and will be discharged home later today in stable condition with antifungals as well as an antibiotic. DISCHARGE DIET: Mechanical soft thin liquids. RESTRICTIONS: None. CODE STATUS: FULL CODE. ALLERGIES: IODINE, ZOFRAN, PHENOTHIAZINES, COMPAZINE, SULFA, SULFISOXAZOLE, SUMATRIPTAN and TIZANID INE. DISCHARGE FOLLOWUP: 1. With the PCP as an outpatient. 2. Dr. Almaraz after [address] Wakefield, the patient will decide after 2 weeks of fluconazole. 3. I have explained all this to the patient at bedside. She is agreeable to the plan of discharge. All questions have been answered. Time required to prepare for discharge 33 minutes.
[2017-09-08] MEDS ORDERED: Cefdinir 300 MG CAP PO SCH (21:00)
--- NOTE | 2017-09-18 12:21 | EKG ---
Test Reason : Blood Pressure : / mmHG Vent. Rate : 092 BPM Atrial Rate : 092 BPM P-R Int : 140 ms QRS Dur : 074 ms QT Int : 394 ms P-R-T Axes : 067 026 065 degrees QTc Int : 487 ms Normal sinus rhythm Nonspecific ST and T wave abnormality Prolonged QT Abnormal ECG Confirmed by ROSENDA THOMAS, CLAY ([id number]), news video editor TREMAINE BARGER ([id number]) on 09/18/2017 12:20:38 PM Referred By: Confirmed By:CLAY HERZOG MD
== END 2017-09-08 13:03 | disposition home or self-care (01) | DRG 177 ==
LOC: ERS 21:05 → IMCU/EMU 22:29 → ONC 09-07 11:51
PROVIDERS: ADMIT Internal Medicine; ATTEND Internal Medicine
DX: J69.0 Pneumonitis due to inhalation of food and vomit (principal); J96.91 Respiratory failure, unspecified with hypoxia; I95.9 Hypotension, unspecified; B37.81 Candidal esophagitis; K91.1 Postgastric surgery syndromes; R13.10 Dysphagia, unspecified; E03.9 Hypothyroidism, unspecified; G40.909 Epilepsy, unspecified, not intractable, without status epilepticus; Z53.29 Procedure and treatment not carried out because of patient's decision for other reasons; Z23 Encounter for immunization; G89.29 Other chronic pain; M54.16 Radiculopathy, lumbar region; R51 Headache; F31.9 Bipolar disorder, unspecified; F41.9 Anxiety disorder, unspecified; E55.9 Vitamin D deficiency, unspecified
CPT/HCPCS: 36415; 74230; 78582; 80048; 80202; 81001; 82805; 83540; 83550; 83605; 83880; 85025; 85379; 87040; 87086; 90471; 90682; 93005; 96365; 96367; 96372; A4216; A9540; A9558; G0008; G8978-GP-CK; G8979-GP-CJ; G8987-GO-CJ; G8988-GO-CI; G8996-GN-CI; G8996-GN-CM; G8997-GN-CI; G8997-GN-CL; J0692; J1642; J1650; J3370; J3480; J7050; Q2036

== ENCOUNTER 2017-10-05 12:55 | Outpatient (CLI) | payer MEDICARE ==
--- NOTE | 2017-10-05 16:33 | RAD ---
TWO VIEW CHEST: Comparison: 09-29-17 History: Dyspnea. FINDINGS: Stable right sided Mediport catheter. Progression of pleural and parenchymal changes, right hemithora x which obscures the right hemidiaphragm and right heart border. Stable aeration of the left lung. No pneumothorax thorax. IMPRESSION: Worsening opacification right hemithorax. POS: H
== END 2017-10-05 12:56 | disposition home or self-care (01) ==
LOC: RAD 12:55
PROVIDERS: ATTEND Internal Medicine Critical Care Medicine
DX: R06.00 Dyspnea, unspecified (principal); R91.8 Other nonspecific abnormal finding of lung field
CPT/HCPCS: 71020

== ENCOUNTER 2017-10-06 07:51 | Day surgery (SDC) | payer MEDICARE ==
--- NOTE | 2017-10-06 09:29 | OP ---
DATE OF PROCEDURE: 10/06/2017 PROCEDURE PERFORMED: Right thoracentesis. PREOPERATIVE DIAGNOSIS: Right pleural effusion. POSTOPERATIVE DIAGNOSIS: Right pleural effusion. ANESTHESIA: A 1% lidocaine without epinephrine. DESCRIPTION OF PROCEDURE: Informed consent was obtained prior to the procedure. I explained the ris ks involved and the patient agreed to proceed. The patient was placed in a sitting position. Her right posterior hemithorax was cleansed at the 5th -6th interspace at the mid scapular line. A 1% lidocaine was used to anesthetize the entry site. Us ing sterile technique, a Khnh-V-Tzkffmiz catheter was placed in the pleural space and approximately 1 .2 liters of low-colored pleural fluid was removed and sent for appropriate studies. She tolerated the procedure very well. Postoperative x-ray is pending.
--- NOTE | 2017-10-06 09:40 | RAD ---
PORTABLE UPRIGHT CHEST: Date: 10/06/17 HISTORY: Post thoracentesis evaluation. COMPARISON: 10/05/17. FINDINGS: The right pleural effusion has significantly decreased in size consistent with the history of thorace ntesis. There is some minimal residual fluid and right basilar atelectasis. No evidence of pneumothor ax identified. Left lung remains clear. MediPort catheter unchanged. IMPRESSION: Decreased right pleural fluid consistent with history of thoracentesis. POS: WING
[2017-10-06 09:42] LABS: BF Reference Range Comment Note:
[2017-10-06 10:10] LABS: BF Color Yellow
[2017-10-06 10:47] LABS: Number Cells Counted-Fluids 100
== END 2017-10-06 09:32 | disposition home or self-care (01) ==
LOC: SDC 07:51
PROVIDERS: ATTEND Internal Medicine Critical Care Medicine
PROC: 0W993ZZ Drainage of Right Pleural Cavity, Percutaneous Approach (ICD-10-PCS; principal; 2017-10-06)
DX: J90 Pleural effusion, not elsewhere classified (principal); Z91.041 Radiographic dye allergy status; Z88.2 Allergy status to sulfonamides; Z88.8 Allergy status to other drugs, medicaments and biological substances
CPT/HCPCS: 32554; 71010; 82150; 82945; 83615; 84157; 85060; 87070; 87116; 87205; 87206; 89051

== ENCOUNTER 2017-11-22 10:53 | Outpatient (CLI) | payer MEDICARE ==
--- NOTE | 2017-11-22 12:03 | RAD ---
2 VIEWS CHEST: Date: 11/22/17 COMPARISON: 10/05/17 and 11/06/17. HISTORY: Dyspnea. FINDINGS: Two views of the chest show normal sized cardiomediastinal silhouette. The MediPort is unchanged in p osition. The previously seen opacity in the right lung base has improved. There may be a small residu al right pleural effusion. Calcified granuloma projects over the right upper lobe. IMPRESSION: Improvement in opacity in the right lung base may represent an improving pleural effusion and/or infi ltrate. POS: TABBY
== END 2017-11-22 10:54 | disposition home or self-care (01) ==
LOC: RAD 10:53
PROVIDERS: ATTEND Internal Medicine Critical Care Medicine
DX: R06.00 Dyspnea, unspecified (principal); J98.4 Other disorders of lung
CPT/HCPCS: 71046

== ENCOUNTER 2018-02-17 13:04 | Outpatient (CLI) | payer MEDICARE ==
--- NOTE | 2018-02-17 14:02 | RAD ---
PA AND LATERAL VIEWS OF CHEST: Date: 02/17/18 HISTORY: Dyspnea. FINDINGS: Comparison made with exam of 12/22/17. Right-sided Port-A-Cath remains in place. The heart size is normal. Calcified granuloma in the right upper lobe is stable. The lungs are expanded without focal areas of consolidation, pneumothorax, or pleural effusions. Postop changes in the region of the GE junction are again seen. IMPRESSION: Stable exam. No acute process. POS: WINGH
== END 2018-02-17 13:05 | disposition home or self-care (01) ==
LOC: RAD 13:04
PROVIDERS: ATTEND Internal Medicine Critical Care Medicine
DX: R06.00 Dyspnea, unspecified (principal)
CPT/HCPCS: 71046

== ENCOUNTER 2018-07-27 21:38 | Observation (INO) | payer MEDICARE ==
[2018-07-28] MEDS ORDERED: levETIRAcetam In NaCl (Iso-Os) 1,000 MG in Premix Bag 1 BAG IVPB SCH (00:45)
[2018-07-28] MEDS ORDERED: Acetaminophen 325 MG TAB PO PRN (01:52)
[2018-07-28] MEDS ORDERED: Lorazepam 2 MG/ML VIAL SLOW IVP PRN (01:53)
[2018-07-28] MEDS ORDERED: Sodium Chloride 0.9% 1,000 ML IV SCH ×2 (01:54→02:00)
[2018-07-28] MEDS ORDERED: Bisacodyl 5 MG TAB PO PRN (01:57)
[2018-07-28] MEDS ORDERED: cefTRIAXone\\ROCEPHIN 1 GM in Sodium Chloride 0.9% 100 ML IVPB SCH (03:00)
[2018-07-28 03:59] VITALS: BMI 19.0
[2018-07-28 06:22] LABS: #Lymphocytes 1.4 thou/uL (1.20-3.40); #Monocytes 0.5 thou/uL (0.11-0.59); #Neutrophils 11.8 thou/uL (1.40-6.50); %Eosinophils 0.3 % (0.0-10.0); %Lymphocytes 10.1 % (21.0-51.0); %Monocytes 3.7 % (0.0-10.0); %Neutrophils 85.8 % (42.0-75.0); Hemoglobin 8.9 g/dL (12.0-16.0); Mean Corpuscular HGB CONC 31.3 g/dL (32.0-36.0); Mean Corpuscular Hemoglobin 31.1 pg (27.0-31.0); Mean Corpuscular Volume 99.2 fL (78.0-98.0); Mean Platelet Volume 7.8 fL (7.4-10.4); Platelet Count 145 thou/uL (130-400); RBC Distribution Width 12.7 % (11.5-14.5); Red Blood Cell (RBC) Count 2.87 mill/uL (4.20-5.40); White Blood Cell (WBC) Count 13.7 thou/uL (4.8-10.8)
[2018-07-28 06:27] LABS: Anion Gap 7 mmol/L (10-20); BUN (Urea Nitrogen) 25 mg/dL (9.8-20.1); Calc. Creatinine Clearance 57 mL/min (70-130); Calcium 6.7 mg/dL (7.8-10.44); Carbon Dioxide 22 mmol/L (23-31); Chloride 111 mmol/L (98-107); Estimated GFR-MDRD Greater than 90; Glucose 104 mg/dL (80-115); Magnesium 1.8 mg/dL (1.6-2.6); Potassium 3.7 mmol/L (3.5-5.1); Sodium 136 mmol/L (136-145)
--- NOTE | 2018-07-28 07:11 | HP ---
CHIEF COMPLAINT: Alteration of awareness. HISTORIAN: The patient's , reliable. HISTORY OF PRESENT ILLNESS: This is a 68-year-old female with extensive medical history being presen ting to our hospital with chief complaint of alteration of awareness per . Per , the p efra has history of seizures and normally she gets seizures and he is able to take care of her. Carlos coles's last seizure was in March during Mother's Day and since then, patient has been doing okay until this morning when stated that he came from work around 12:00 p.m. and saw the patient lying in bed, staring at the ceiling with a glare that was very terrifying. Patient was not responding to verbal stimuli per the . There stated that patient was unresponsive with eyes wide op en and staring and this is not the patient's baseline. At present, patient is able to do her activit ies of daily living and she is able to remember things even though her memory is not as sharp as he u sed to. Her thought that the patient's symptoms were likely due to seizure activity. Yunior duran stated that he then checked the patient's blood pressure and the patient's blood pressure was 70s/5 0s. He then tried to speak with the , but the was still not responding and having the gurgl ing in her throat and the patient was having difficulty with her breathing. Therefore, the s tated that he picked the patient up with the patient in the wheelchair and drove the patient to our h ospital. REVIEW OF SYSTEMS: Review of systems cannot be obtained since the patient is altered at this time. Patient is alert and oriented x1. PAST MEDICAL HISTORY: 1. The patient has past medical history of seizures. 2. Hypothyroidism. 3. Esophageal perforation. 4. Placement of MediPort due to poor IV access. 5. Chronic dumping syndrome. 6. Orthostatic hypotension. 7. Chronic low back pain secondary to lumbar radiculopathy. 8. Chronic headaches. 9. Anxiety, depression, bipolar. 10. Vitamin D deficiency. PAST SURGICAL HISTORY: Patient has history of Rocco-en-Y procedure, appendectomy, tonsillectomy, chol ecystectomy, thyroidectomy, hysterectomy with bilateral salpingo-oophorectomy, sympathetic nerve bloc k. FAMILY HISTORY: Reviewed and noncontributory. PSYCHIATRIC HISTORY: Anxiety, depression and PTSD. SOCIAL HISTORY: Patient does not smoke. Denies alcohol use and denies any illicit drug use. Joy north lives at home with her . ALLERGIES: THE PATIENT IS ALLERGIC TO CODEINE, PHOSPHATE, COMPAZINE, IMITREX, IODINE, ONDANSETRON, P HENOTHIAZINE, PROCHLORPERAZINE, SULFA, DILATIN, SUMATRIPTAN. CURRENT MEDICATIONS: 1. Patient is on Ambien 10 mg. 2. Seroquel 400 mg. 3. Keppra 750 mg b.i.d. 4. Dilaudid 2 mg b.i.d. 5. Amitriptyline 10 mg t.i.d. PHYSICAL EXAMINATION: VITAL SIGNS: Blood pressure in the ED 98/60, pulse 109, respiratory rate 20, O2 sat 80%. On admissi on, the patient's blood pressure is 114/60, pulse 96, respiratory rate 20, temperature 100.1, O2 sat 97% on room air. GENERAL: Patient is lying in bed, able to communicate, speaking full sentences; however, patient is alert and oriented x1. Patient cannot be able to remember when he is in, [employer] and where has surrounded, but patient is able to state her name. HEENT: Normocephalic, atraumatic. Pupils are equal, round, and reactive to light. Extraocular evelin rs are intact. No scleral icterus. NECK: Supple, no JVD. Trachea is midline. Mucous membranes are dry. RESPIRATORY: Clear to auscultation bilaterally. No wheezing, no rales, no rhonchi is appreciated. CARDIAC: Positive S1, S2, regular rate and rhythm. No murmurs, no gallops or rubs appreciated. ABDOMEN: Mild tenderness with deep palpation at the abdomen. Positive bowel sounds in all quadrants . No ecchymosis, no guarding. No abdominal distention. EXTREMITIES: Upper extremity, patient has good pulses in the upper and lower extremities bilaterally . Patient is able to move upper extremities freely without any difficulty. The patient has no edema . Lower extremity, patient is able to raise her lower extremities bilaterally. Good pulses bilatera lly. NEUROLOGIC: Cranial nerves II-XII grossly intact. No neurological deficits noted. Patient's GCS sc [facility] is 15. SKIN: Warm, dry, and intact. ED COURSE: Patient was given azithromycin, ceftriaxone, naloxone, lorazepam, and a liter of normal s eliza in the ED. LABORATORY DATA: WBC 22.4, hemoglobin 12.3, hematocrit 37.8 and platelet count 180. Bands of 17. C oagulation: PT is 13.3, INR is 1.0, PTT 26.4. Sodium 135, potassium is 4.6, chloride 104, carbon di oxide 21, anion gap of 15, BUN 49, creatinine 1.11, GFR of 49. Glucose is 224. Lactic acid is 0.7, calcium of 8.3. AST is 80, ALT 61, alkaline phosphatase is 60, creatinine kinase is 261. Troponins 0.012. Urine; patient has trace ketones, large blood, negative, nitrite and negative leukoesterase. Toxicology; patient has positive opioids, positive oxycodone positive barbiturates, positive tricycl ics, positive benzodiazepines in the urine. ASSESSMENT AND PLAN: This is a 68-year-old female with extensive medical history being admitted for: 1. Encephalopathy, most likely due to seizure activity. Patient has history of seizures and the pat ient must have had seizure this morning. At this point, we will not get prolactin since patient's se izure happened earlier on during the day. We will start patient on a bolus of Keppra 1000 and then w e will do Keppra 500 daily and we will consult Neurology. We will do neuro check and seizure checks and we will admit the patient to telemetry floor. 2. Leukocytosis most likely reactive; however, we will keep patient on Rocephin at this time until w e get cultures back and after the cultures we can decide if we want to continue antibiotics. 3. Dehydration. Patient's BUN and creatinine ratio is 20:1. Patient has dry mucous membranes. The patient is very dehydrated. At this point, we will continue patient on IV fluids. We will monitor the patient. 4. Mild rhabdomyolysis. Patient's creatinine kinase is 269. Patient has mild rhabdomyolysis, most likely due to seizure activity. At this point we will continue the patient on IV normal saline. 5. We will do neuro check and seizure checks and we will admit the patient to telemetry floor. 6. Hypothyroidism. We will continue current management. 7. Anxiety, depression, bipolar. We will continue patient on current medications. I will continue patient on current management per like that. 8. Chronic low back pain. We will continue patient on her current management. 9. Deep venous thrombosis and gastrointestinal prophylaxis. We will do Lovenox for DVT prophylaxis and Pepcid for GI prophylaxis.
[2018-07-28] MEDS: Enoxaparin Sodium 40 MG/0.4 ML SYRINGE SC SCH (08:39)
[2018-07-28] MEDS: Famotidine/PF 20 mg/2ml Vial SLOW IVP SCH ×2 (08:40→22:06)
[2018-07-28 11:31] LABS: Hemoglobin 9.5 g/dL (12.0-16.0)
[2018-07-28] MEDS: Piperacillin/Tazobactam 3.375 GM in Sodium Chloride 0.9% 100 ML IVPB SCH ×3 (12:24→23:56)
[2018-07-28] MEDS ORDERED: Cyclobenzaprine 10 MG TAB PO PRN (14:47)
[2018-07-28] MEDS ORDERED: Zolpidem Tartrate 5 MG TAB PO PRN (14:53)
--- NOTE | 2018-07-28 14:56 | PDOC.EVN ---
Event Note - Event Note Event Note: Pt seen and examined. care discussed w at bedside. Chart reviewed. ? Possible seizures. Discussed with her neurologist Dr Lara at [facility].There is a question of psychogenic nature of seizures also.However, given High prolactin,will increase dose of keppra. Pt takes 750 BID-will change to 1000 BID for now. No neurology coverage in house today FLORENCE low but Pt reports that her BP runs low. ? Infection .Rayo get UA. CXR clear but can have aspiration Pneumonitis as well. Will cont ABx but change to zosyn . H/H drop noted. Christina mosesal.Monitor.seems to be at baseline. Pt on multiple pain meds and muscle relaxants at homeOverdose can not be ruled out . .Monitor for adverse reactions.Will not restart Dilaudid for now. AM labs
[2018-07-28] MEDS ORDERED: levETIRAcetam 500 MG TAB PO SCH (21:00)
[2018-07-28] MEDS: Amitriptyline HCl 10 MG TAB PO SCH (22:06)
[2018-07-28] MEDS: levETIRAcetam 500 MG TAB PO SCH (22:06)
[2018-07-29 03:21] LABS: Bilirubin Negative (Negative); Blood, Urine Negative (Negative); Clarity CLEAR (Clear); Glucose, Urine (Dipstick) Negative (Negative); Leukocyte Trace (Negative); Nitrite Negative (Negative); Protein, Urine (Dipstick) Negative (Neg-Trace); Specific Gravity, Urine 1.004 (1.002-1.036); Urobilinogen 0.2 mg/dL (0.2-1.0)
[2018-07-29 03:24] LABS: Bacteria/HPF None Seen HPF (None Seen); Hyaline Casts/LPF 0-3 HYALINE CAST LPF (0-3 Hyaline); Squamous Epithelial 0-3 HPF (0-3)
[2018-07-29] MEDS ORDERED: Acetaminophen 325 MG TAB PO PRN (05:18)
[2018-07-29] MEDS: Piperacillin/Tazobactam 3.375 GM in Sodium Chloride 0.9% 100 ML IVPB SCH ×2 (05:25→13:20)
[2018-07-29 05:42] LABS: #Eosinphils 0.1 thou/uL (0.0-0.7); #Lymphocytes 0.9 thou/uL (1.20-3.40); #Monocytes 0.6 thou/uL (0.11-0.59); %Basophils 0.1 % (0.0-1.0); %Eosinophils 0.7 % (0.0-10.0); %Lymphocytes 10.3 % (21.0-51.0); %Monocytes 6.5 % (0.0-10.0); %Neutrophils 82.4 % (42.0-75.0); Hemoglobin 9.9 g/dL (12.0-16.0); Mean Corpuscular HGB CONC 31.3 g/dL (32.0-36.0); Mean Corpuscular Hemoglobin 30.6 pg (27.0-31.0); Mean Corpuscular Volume 97.7 fL (78.0-98.0); Mean Platelet Volume 8.3 fL (7.4-10.4); Platelet Count 149 thou/uL (130-400); RBC Distribution Width 12.9 % (11.5-14.5); Red Blood Cell (RBC) Count 3.25 mill/uL (4.20-5.40); White Blood Cell (WBC) Count 8.5 thou/uL (4.8-10.8)
[2018-07-29 05:55] LABS: Anion Gap 10 mmol/L (10-20); BUN (Urea Nitrogen) 13 mg/dL (9.8-20.1); Calc. Creatinine Clearance 55 mL/min (70-130); Calcium 7.7 mg/dL (7.8-10.44); Carbon Dioxide 21 mmol/L (23-31); Chloride 114 mmol/L (98-107); Estimated GFR-MDRD 89; Glucose 80 mg/dL (80-115); Potassium 3.5 mmol/L (3.5-5.1); Sodium 141 mmol/L (136-145)
[2018-07-29] MEDS ORDERED: Levothyroxine Sodium 125 MCG TAB PO SCH (06:00)
[2018-07-29] MEDS: Famotidine/PF 20 mg/2ml Vial SLOW IVP SCH (08:54)
[2018-07-29] MEDS: Amitriptyline HCl 10 MG TAB PO SCH (08:54)
[2018-07-29] MEDS: Enoxaparin Sodium 40 MG/0.4 ML SYRINGE SC SCH (08:54)
[2018-07-29] MEDS ORDERED: Diazepam 5 MG TAB PO SCH (09:00)
[2018-07-29] MEDS ORDERED: levETIRAcetam 500 mg/5 ml Oral Solution PO SCH (09:00)
[2018-07-29 11:47] VITALS: BP 89/53; TEMP 97.8
--- NOTE | 2018-07-29 12:32 | DIS ---
PRIMARY CARE PHYSICIAN: Dr. Chucho Lucero PRIMARY NEUROLOGIST: Dr. Lara at [facility]. DATE OF ADMISSION: 07/28/2018 DATE OF DISCHARGE: 07/29/2018 DISCHARGE DIAGNOSES: 1. Breakthrough seizure. 2. History of seizure disorder. 3. Hypothyroidism. 4. History of esophageal perforation. 5. Chronic dumping syndrome. 6. History of orthostatic hypotension. 7. Chronic low back pain. 8. Anxiety, depression and bipolar disorder. CONSULTATIONS: None. PROCEDURES: None. HISTORY AND PHYSICAL: Ms. Price is a 60-year-old female with known seizures. She follows with Dr. Lara at [facility] who was found to be altered and brought to the emergency department for pilar luation. She was seen and evaluated in our emergency department with elevated prolactin, felt that s he may have been having seizures, so we were called for admission. HOSPITAL COURSE: The patient was seen by Dr. Jerry and placed in inpatient status. Home medication s were continued. The patient was given Keppra 1000 mg and Neurology was consulted. However, Neurol ogy was not available. Dr. Flores took the case over the day and talked to Dr. Lara by phone and agreed to increase the Keppra to 1000 b.i.d. so changes were made. The patient was started on antibiotics due to concern for aspiration pneumonia. A chest x-ray and an exam were negative. Overnight 07/28/2018 to 07/29/2018 she is back to her baseline. She is feeling a little nausea after taking her morning, Keppra, but otherwise is back to her normal self. She was stable for discharge with outpatient followup. PHYSICAL EXAMINATION: The patient was seen and examined on the day of discharge. Discharge plan and disposition were discussed with the patient and her face to face at the bedside. DISCHARGE MEDICATIONS: (New medications) 1. Keppra oral solution 1000 mg p.o. b.i.d., prescription for 1 month supply with 2 refills sent. MEDICATIONS DISCONTINUED: Keppra 750 twice a day. HOME MEDICATIONS TO CONTINUE: 1. Amitriptyline 10 mg p.o. b.i.d. 2. Cyclobenzaprine 10 mg p.o. q.8 h hours p.r.n. anxiety or spasm. 3. Valium 10 mg p.o. daily. 4. Conjugated estrogen 0.625 mg p.o. daily. 5. Levothyroxine 125 mg daily. 6. Seroquel 400 mg p.o. at bedtime. 7. Dilaudid 2 mg p.o. b.i.d. 8. MiraLax 17 grams p.o. at bedtime. 9. Ambien 10 mg p.o. at bedtime. FOLLOWUP APPOINTMENTS: 1. Dr. Lucero within a week. 2. Dr. Lara next available. DISCHARGE CONDITION: Stable. DISPOSITION: She will be discharged home via private vehicle with her . DISCHARGE ACTIVITY: As tolerated. DISCHARGE DIET: No restrictions.
[2018-07-29] MEDS: levETIRAcetam 500 MG TAB PO SCH (13:55)
--- NOTE | 2018-08-03 16:27 | EEG ---
Referring Physician: DR. Jossy GARBER EEG # [id number] TEST TYPE: ROUTINE PORTABLE INPATIENT DATE OF EEG BEING DONE: 07/28/18 REASON FOR EEG: ALTERED MENTAL STATUS EEG DESCRIPTION: This is a 21 channel digital EEG recording. Electrodes are placed using the international ten-twenty electrode placement system. The background rhythm is predominately 5-6 hertz, low to medium amplitude Theta rhythm. There are periods of drowsiness with mostly Theta activity. There are also periods of sleep with normal sleep potentials. PHOTIC STIMULATION: Showed no effect. HYPERVENTILATION: Could not be done. There are no epileptiform discharges, sharp transients or asymmetry noted. EKG LEAD: Shows 78 beats per minute, regular rhythm. IMPRESSION: THIS IS A MILDLY ABNORMAL EEG. IT SHOWS MILD NONSPECIFIC CEREBRAL DYSFUNCTION. HOWEVER, THERE ARE NO EPILEPTIFORM DISCHARGES, SHARP TRANSIENTS OR ASYMMETRY NOTED. THIS CAN BE PRESENT IN PATIENTS WITH TOXIC-METABOLIC ENCEPHALOPATHY. PLEASE CORRELATE THESE FINDINGS CLINICALLY. Administrative Intern: DEACON Production Maintenance Mechanic: [email or web address] POPE
== END 2018-07-29 13:45 | disposition home or self-care (01) ==
LOC: ERS 21:38 → INTOOBSV 07-28 01:30 → 2SE 07-28 01:30
PROVIDERS: ADMIT Internal Medicine; ATTEND Internal Medicine
DX: G40.909 Epilepsy, unspecified, not intractable, without status epilepticus (principal); E03.9 Hypothyroidism, unspecified; M54.16 Radiculopathy, lumbar region; F41.9 Anxiety disorder, unspecified; F31.9 Bipolar disorder, unspecified; E55.9 Vitamin D deficiency, unspecified; K91.1 Postgastric surgery syndromes; I95.1 Orthostatic hypotension; G93.40 Encephalopathy, unspecified; D72.829 Elevated white blood cell count, unspecified; E86.0 Dehydration; M62.82 Rhabdomyolysis; Z79.891 Long term (current) use of opiate analgesic; Z79.899 Other long term (current) drug therapy; Z88.2 Allergy status to sulfonamides; Z88.5 Allergy status to narcotic agent; Z88.8 Allergy status to other drugs, medicaments and biological substances; Z98.84 Bariatric surgery status; Z98.890 Other specified postprocedural states; Z91.041 Radiographic dye allergy status
CPT/HCPCS: 36415; 80048; 81003; 81015; 83735; 84146; 84443; 85025; 95816; 95819; 96365; J0696; J1642; J1650; J1953; J2543; J7050; S0028

== ENCOUNTER 2018-10-12 14:41 | Outpatient (CLI) | payer MEDICARE ==
--- NOTE | 2018-10-12 16:46 | RAD ---
CHEST TWO VIEWS: 10/12/18 COMPARISON: 02/17/18, 07/27/18 HISTORY: Dyspnea. FINDINGS: Stable right sided Mediport catheter. Stable calcified granulomata in the right upper lobe. Chronic c hange of the lung parenchyma, without consolidation or mass. No pneumothorax or osseous abnormalities . Stable configuration of the cardiac silhouette. IMPRESSION: No acute cardiopulmonary process. POS: [facility]
== END 2018-10-12 14:42 | disposition home or self-care (01) ==
LOC: RAD 14:41
PROVIDERS: ATTEND Internal Medicine Critical Care Medicine
DX: R06.00 Dyspnea, unspecified (principal)
CPT/HCPCS: 71046

== ENCOUNTER 2021-06-27 14:34 | Outpatient (CLI) | payer MEDICARE | END 2021-06-27 14:35 | disposition home or self-care (01) | LOC: BICMRI 14:34 | PROVIDERS: ATTEND Anesthesiology Pain Medicine | DX: M51.16 Intervertebral disc disorders with radiculopathy, lumbar region (principal) | CPT/HCPCS: 72148 ==

== ENCOUNTER 2023-07-14 08:47 | Inpatient (IN) | payer MEDICARE ==
[2023-07-14 10:00] LABS: Hematocrit 37.2 % (36.0-47.0); Hemoglobin 11.6 g/dL (12.0-16.0); Mean Corpuscular HGB CONC 31.2 g/dL (32.0-36.0); Mean Corpuscular Hemoglobin 33.7 pg (27.0-31.0); Mean Corpuscular Volume 108.1 fl (78.0-98.0); Mean Platelet Volume 9.4 fL (7.4-10.4); Platelet Count 214 10x3/uL (130-400); RBC Distribution Width 12.7 % (11.5-14.5); Red Blood Cell (RBC) Count 3.44 mill/uL (4.20-5.40); White Blood Cell (WBC) Count 4.5 10x3/uL (4.8-10.8)
[2023-07-14 10:04] LABS: Delete Auto Diff?? YES; Manual Diff?? YES
[2023-07-14 10:18] LABS: Bilirubin 1+ (Negative); Blood, Urine Trace (Negative); CAUTI Indications for Culture Alt mental st,lethar; Clarity Turbid (Clear); Glucose, Urine (Dipstick) Normal (Negative); Ketone, Urine Trace mg/dL (Negative); Leukocyte 500 Leu/uL (Negative); Nitrite Negative (Negative); Protein, Urine (Dipstick) 30 mg/dL (Neg-Trace); Specific Gravity, Urine 1.038 (1.002-1.036); Urobilinogen 3 mg/dL (Less than 2)
[2023-07-14 10:26] LABS: ALT (SGPT) 17 U/L (8-55); AST (SGOT) 16 U/L (5-34); Albumin 1.5 g/dL (3.4-4.8); Alkaline Phosphatase 122 U/L (40-110); Anion Gap 9 mmol/L (10-20); BUN (Urea Nitrogen) 19 mg/dL (9.8-20.1); Bilirubin, Total 0.5 mg/dL (0.2-1.2); Calc. Creatinine Clearance 0 mL/min (70-130); Calcium 7.2 mg/dL (7.8-10.44); Carbon Dioxide 23 mmol/L (23-31); Chloride 114 mmol/L (98-107); Estimated GFR 87; Glucose 123 mg/dL (83-110); Potassium 3.8 mmol/L (3.5-5.1); Protein, Total 4.5 g/dL (5.8-8.1); Sodium 142 mmol/L (136-145)
[2023-07-14 10:27] LABS: Troponin I Less than 0.010 ng/mL (< 0.028)
[2023-07-14 10:40] LABS: RBC/HPF 0-3 HPF (0-3)
[2023-07-14 10:41] LABS: Bacteria/HPF 2+ HPF (None Seen)
[2023-07-14 10:44] LABS: Urine Culture Reflex No No
[2023-07-14 10:45] LABS: Band 27 % (5-11); Lymphocytes 16 % (21-51); Neutrophil 57 % (42-75)
[2023-07-14 10:46] LABS: Macrocytosis SLIGHT = 6-15 cells (100X) (0-5/hpf); Platelet Adequacy Comment Platelets Normal; Polychromasia SLIGHT = 2-3 cells (100X) (0-2/hpf)
[2023-07-14] MEDS ORDERED: Cefepime 2 GM VIAL ONE (11:36)
[2023-07-14 11:51] LABS: SARS-CoV-2 NAA Rapid Test Not Detected (NotDetected)
[2023-07-14] MEDS ORDERED: Vancomycin 1 GM/200 ML (FROZEN) BAG ONE (12:22)
[2023-07-14] MEDS ORDERED: NOREPINEPHRINE 8 MG/250 ML-D5W 250 ML ONE (13:57)
[2023-07-14 14:06] LABS: Lactic Acid 2.2 mmol/L (0.5-2.2)
[2023-07-14] MEDS ORDERED: Rocuronium Bromide 10 MG/ML (10ML VIAL) ONE (14:35)
[2023-07-14 15:12] LABS: Actual Bicarbonate (HCO3a) 18.2 mEq/L (22-28); Analyzer IN Cardio ER; Base Excess (BEa) -4.9 mEq/L (-2.0 to +3.0); CO2 Tension 28.3 mmHg (35.0-45.0); Calcium, Ionized (arterial) 1.13 mmol/L (1.12-1.30); Carboxyhemoglobin (COHb) 0.3 gm% (0.0-3.0); Hematocrit-ABG 36 % (36.0-47.0); Hemoglobin (Hb) 12.3 g/dL (12.0-16.0); O2 Tension (PaO2), arterial 52.8 mmHg (> 70.0); Potassium - ABG Lab 4.21 mmol/L (3.70-5.30); pH, Arterial 7.426 (7.35-7.45)
[2023-07-14 15:13] LABS: ALV-art Gradient 624.825 mmHg (0-20); Puncture Site LFA
[2023-07-14] MEDS ORDERED: Guaifenesin DM 100-10/5 ML UDCUP PO PRN (15:44)
[2023-07-14] MEDS ORDERED: Senokot S 8.6-50 MG TAB PO PRN (15:44)
[2023-07-14] MEDS ORDERED: Bisacodyl 10 MG SUPP PR PRN (15:44)
[2023-07-14] MEDS ORDERED: HYDROcodone/Acetaminophen 5/325 mg Tablet PO PRN (15:44)
[2023-07-14] MEDS ORDERED: Acetaminophen 325 MG TAB PO PRN (15:44)
[2023-07-14] MEDS ORDERED: Furosemide 40 MG/4 ML VIAL ONE (15:52)
[2023-07-14] MEDS ORDERED: LevoFLOXacin 750 mg/D5W 150 ml Premix Bag ONE (16:19)
[2023-07-14] MEDS ORDERED: Lactated Ringer's 500 ML IV SCH ×2 (17:00→17:15)
[2023-07-14] MEDS: Lactated Ringer's 1,000 ML IV SCH ×2 (17:05→21:10)
[2023-07-14 17:34] LABS: Hematocrit 35.1 % (36.0-47.0); Mean Corpuscular HGB CONC 31.3 g/dL (32.0-36.0); Mean Corpuscular Hemoglobin 34.2 pg (27.0-31.0); Mean Platelet Volume 9.9 fL (7.4-10.4); Platelet Count 181 10x3/uL (130-400); RBC Distribution Width 12.7 % (11.5-14.5); Red Blood Cell (RBC) Count 3.22 mill/uL (4.20-5.40); White Blood Cell (WBC) Count 4.3 10x3/uL (4.8-10.8)
[2023-07-14 17:45] LABS: Delete Auto Diff?? YES; Manual Diff?? YES
[2023-07-14 18:04] LABS: ALT (SGPT) 16 U/L (8-55); AST (SGOT) 17 U/L (5-34); Albumin 1.3 g/dL (3.4-4.8); Alkaline Phosphatase 101 U/L (40-110); Anion Gap 10 mmol/L (10-20); BUN (Urea Nitrogen) 22 mg/dL (9.8-20.1); Bilirubin, Total 0.4 mg/dL (0.2-1.2); Calc. Creatinine Clearance 0 mL/min (70-130); Carbon Dioxide 21 mmol/L (23-31); Chloride 113 mmol/L (98-107); Estimated GFR 68; Globulin 2.5 g/dL (2.4-3.5); Glucose 222 mg/dL (83-110); Potassium 3.9 mmol/L (3.5-5.1); Protein, Total 3.8 g/dL (5.8-8.1); Sodium 140 mmol/L (136-145)
[2023-07-14 18:13] LABS: Calcium 6.9 mg/dL (7.8-10.44)
[2023-07-14 18:16] LABS: Band 52 % (5-11); Burr Cells SLIGHT = 2-5 cells HPF (0-1); CellaVision Operator ID LAB.MJL; Dohle Bodies SLIGHT; Large Platelets 6.8 % (0-5); Lymphocytes 9 % (21-51); Macrocytosis SLIGHT = 6-15 cells HPF (0-5); Metamyelocyte 20 % (0-0); Monocytes 1 % (0-10); Myelocyte 2 % (0-0); Neutrophil 16 % (42-75); Platelet Adequacy Comment Platelets Normal; Poikilocytosis SLIGHT = 6-15 cells HPF (0-5); Polychromasia SLIGHT = 2-3 cells HPF (0-2); Reflex for Review?? YES; Total Cell Count 117; Vacuoles SLIGHT
[2023-07-14] MEDS: Albumin 25% 25 GM/100 ML BOT IVPB SCH ×2 (18:17→23:39)
[2023-07-14] MEDS ORDERED: Calcium Chloride 1 GM/10 ML Abboject SYRINGE IVP SCH (18:30)
[2023-07-14] MEDS: Hydrocortisone Sod Succ/PF 100 mg/2 ml Vial IVP SCH ×2 (18:42→23:43)
[2023-07-14 19:03] LABS: Actual Bicarbonate (HCO3v) 17.5 mEq/L (22-28); Base Excess -8.2 mEq/L (-2.0 to +3.0); Calcium, Ionized (venous) 1.03 mmol/L (1.16-1.32); Chloride (VBG) 111 mmol/L (98-106); Hematocrit-VBG 33 % (36.0-47.0); Hemoglobin (Hb) 11.3 g/dL (11.7-16.1); Potassium (VBG) 3.83 mmol/L (3.70-5.30); Sodium 138.1 mmol/L (133-146); pH (venous) 7.299 (7.32-7.43)
[2023-07-14] MEDS ORDERED: Ventilator Sedation Protocol 1 EACH FS SCH (19:15)
[2023-07-14] MEDS ORDERED: Propofol BOLUS 1,000 MG/100 ML VIAL IV PRN (19:30)
[2023-07-14] MEDS ORDERED: Lorazepam 2 MG/ML VIAL SLOW IVP PRN (19:30)
[2023-07-14] MEDS ORDERED: Morphine 2 MG/ML VIAL SLOW IVP PRN (19:30)
[2023-07-14] MEDS ORDERED: DISCONTINUE PREVIOUS NARCOTIC PAIN MEDICATIONS AND BENZODIAZEPINES FS SCH (19:30)
[2023-07-14] MEDS ORDERED: Fentanyl CADD 100 ML IV SCH (19:30)
[2023-07-14] MEDS ORDERED: Fentanyl BOLUS 250 ML IVPB PRN (19:30)
[2023-07-14] MEDS ORDERED: Propofol 1,000 MG/100 ML VIAL IV PRN (19:30)
[2023-07-14] MEDS: levETIRAcetam 500 MG/5 ML VIAL SLOW IVP SCH (20:49)
[2023-07-14] MEDS ORDERED: Famotidine/PF 20 mg/2ml Vial SLOW IVP SCH (21:00)
[2023-07-14] MEDS ORDERED: Vancomycin HCl 500 GM in Sodium Chloride 0.9% 250 ML 300 ML IVPB SCH (21:00)
[2023-07-14] MEDS: NOREPINEPHRINE 8 MG/250 ML-D5W 250 ML IVPB SCH (21:08)
[2023-07-14] MEDS ORDERED: Cefepime 2 GM in Sodium Chloride 0.9% 100 ML IVPB SCH (23:59)
[2023-07-15 00:06] LABS: ALT (SGPT) 19 U/L (8-55); AST (SGOT) 51 U/L (5-34); Albumin 2.1 g/dL (3.4-4.8); Alkaline Phosphatase 77 U/L (40-110); Anion Gap 11 mmol/L (10-20); BUN (Urea Nitrogen) 22 mg/dL (9.8-20.1); Bilirubin, Total 0.5 mg/dL (0.2-1.2); Calc. Creatinine Clearance 42 mL/min (70-130); Calcium 8.2 mg/dL (7.8-10.44); Carbon Dioxide 18 mmol/L (23-31); Chloride 114 mmol/L (98-107); Estimated GFR 73; Glucose 115 mg/dL (83-110); Magnesium 1.6 mg/dL (1.6-2.6); Phosphorus 2.8 mg/dL (2.3-4.7); Potassium 3.8 mmol/L (3.5-5.1); Protein, Total 4.1 g/dL (5.8-8.1); Sodium 139 mmol/L (136-145); Troponin I 0.028 ng/mL (< 0.028)
[2023-07-15 00:20] LABS: Thyroid Stimulating Hormone 27.1425 uIU/mL (0.35-4.94)
[2023-07-15] MEDS: Vasopressin 20 UNITS in Sodium Chloride 0.9% 50 ML IV SCH ×4 (01:24→21:36)
[2023-07-15 02:50] LABS: T4 2.18 ug/dL (4.87-11.72)
[2023-07-15] MEDS: NOREPINEPHRINE 8 MG/250 ML-D5W 250 ML IVPB SCH ×5 (04:09→20:00)
[2023-07-15 04:51] LABS: Hematocrit 26.2 % (36.0-47.0); Hemoglobin 8.4 g/dL (12.0-16.0); Mean Corpuscular HGB CONC 32.1 g/dL (32.0-36.0); Mean Corpuscular Hemoglobin 33.9 pg (27.0-31.0); Mean Platelet Volume 10.3 fL (7.4-10.4); Platelet Count 133 10x3/uL (130-400); RBC Distribution Width 12.5 % (11.5-14.5); Red Blood Cell (RBC) Count 2.48 mill/uL (4.20-5.40); White Blood Cell (WBC) Count 8.5 10x3/uL (4.8-10.8)
[2023-07-15 05:07] LABS: Delete Auto Diff?? YES; Manual Diff?? YES; Mean Corpuscular Volume 105.6 fl (78.0-98.0)
[2023-07-15] MEDS: Albumin 25% 25 GM/100 ML BOT IVPB SCH ×4 (05:10→23:05)
[2023-07-15] MEDS: Hydrocortisone Sod Succ/PF 100 mg/2 ml Vial IVP SCH ×4 (05:11→23:05)
[2023-07-15 05:14] LABS: Anion Gap 12 mmol/L (10-20); BUN (Urea Nitrogen) 24 mg/dL (9.8-20.1); Calc. Creatinine Clearance 39 mL/min (70-130); Calcium 8.2 mg/dL (7.8-10.44); Carbon Dioxide 17 mmol/L (23-31); Chloride 112 mmol/L (98-107); Estimated GFR 68; Glucose 168 mg/dL (83-110); Potassium 4.1 mmol/L (3.5-5.1); Sodium 137 mmol/L (136-145)
[2023-07-15 05:44] LABS: Anisocytosis SLIGHT = 6-15 cells HPF (0-5); Band 46 % (5-11); Burr Cells SLIGHT = 2-5 cells HPF (0-1); CellaVision Operator ID lab.sh2; Hypochromia MODERATE=16-30 cells HPF (0-5); Large Platelets 1.7 % (0-5); Lymphocytes 10 % (21-51); Macrocytosis MODERATE=16-30 cells HPF (0-5); Monocytes 8 % (0-10); Neutrophil 35 % (42-75); Ovalocytes SLIGHT = 2-5 cells HPF (0-1); Platelet Adequacy Comment Platelets Normal; Poikilocytosis SLIGHT = 6-15 cells HPF (0-5); Polychromasia SLIGHT = 2-3 cells HPF (0-2); Reactive Lymphocytes 2 % (0-10); Smudge Cells 2.6 %; Total Cell Count 115
[2023-07-15] MEDS ORDERED: Sodium Bicarb 50 MEQ/50 ML VIAL IVP SCH ×2 (05:45→21:45)
[2023-07-15] MEDS ORDERED: Levothyroxine Sodium 50 MCG TAB PO SCH (06:00)
[2023-07-15] MEDS ORDERED: Lactated Ringer's 500 ML IV SCH ×2 (08:00→13:00)
[2023-07-15] MEDS ORDERED: Magnesium 2 GM/50 ML(in water) 2 GM in Premix Bag 1 BAG IVPB SCH (08:00)
[2023-07-15] MEDS: Lactated Ringer's 1,000 ML IV SCH ×2 (08:14→13:14)
[2023-07-15] MEDS: levETIRAcetam 500 MG/5 ML VIAL SLOW IVP SCH ×2 (08:44→19:59)
[2023-07-15] MEDS: Famotidine/PF 20 mg/2ml Vial SLOW IVP SCH (08:45)
[2023-07-15 10:04] LABS: Base Excess (BEa) -9.8 mEq/L (-2.0 to +3.0); Carboxyhemoglobin (COHb) 0.3 gm% (0.0-3.0); Hematocrit-ABG 23 % (36.0-47.0); Hemoglobin (Hb) 7.7 g/dL (12.0-16.0); O2 Tension (PaO2), arterial 174.1 mmHg (> 70.0); Potassium - ABG Lab 4.11 mmol/L (3.70-5.30); pH, Arterial 7.454 (7.35-7.45)
[2023-07-15 10:07] LABS: Actual Bicarbonate (HCO3a) 12.8 mEq/L (22-28); CO2 Tension 18.6 mmHg (35.0-45.0); Puncture Site Arterial Line
[2023-07-15] MEDS: Vancomycin HCl 750 MG in Sodium Chloride 0.9% 250 ML 250 ML IVPB SCH (10:59)
[2023-07-15 11:08] VITALS: BMI 19.1
[2023-07-15] MEDS: Cefepime 1 GM in Sodium Chloride 0.9% 100 ML IVPB SCH ×2 (12:17→23:05)
[2023-07-15 13:41] LABS: Anion Gap 24 mmol/L (10-20); BUN (Urea Nitrogen) 22 mg/dL (9.8-20.1); Calc. Creatinine Clearance 36 mL/min (70-130); Calcium 7.6 mg/dL (7.8-10.44); Carbon Dioxide 10 mmol/L (23-31); Chloride 109 mmol/L (98-107); Estimated GFR 60; Glucose 97 mg/dL (83-110); Magnesium 2.4 mg/dL (1.6-2.6); Phosphorus 3.7 mg/dL (2.3-4.7); Potassium 4.2 mmol/L (3.5-5.1); Sodium 139 mmol/L (136-145)
[2023-07-15] MEDS: Phenylephrine 40 MG/NS 250 ML 40 MG in Premix Bag 1 BAG IVPB SCH ×3 (14:27→23:28)
[2023-07-15 14:30] LABS: Hematocrit 24.8 % (36.0-47.0); Hemoglobin 7.2 g/dL (12.0-16.0); Mean Corpuscular Hemoglobin 33.5 pg (27.0-31.0); Mean Platelet Volume 10.8 fL (7.4-10.4); RBC Distribution Width 12.7 % (11.5-14.5); Red Blood Cell (RBC) Count 2.15 mill/uL (4.20-5.40); White Blood Cell (WBC) Count 13.3 10x3/uL (4.8-10.8)
[2023-07-15 14:40] LABS: Mean Corpuscular Volume 115.3 fl (78.0-98.0); Platelet Count 96 10x3/uL (130-400)
[2023-07-15 15:07] LABS: Iron 21 ug/dL (50-170)
[2023-07-15] MEDS ORDERED: EPINEPHrine 1 MG/10 ML Abboject SYRINGE ONE (17:38)
[2023-07-15] MEDS ORDERED: Dextrose 50% Abboject 50 ML SYRINGE SLOW IVP SCH (17:45)
[2023-07-15] MEDS ORDERED: Levothyroxine 100 MCG SDV IVP SCH ×2 (18:45)
[2023-07-15] MEDS ORDERED: Hydrocortisone Sod Succ/PF 100 mg/2 ml Vial IVP SCH ×2 (18:45→19:45)
[2023-07-15] MEDS ORDERED: Levothyroxine Sodium 200 MCG VIAL IVP SCH (19:00)
[2023-07-15] MEDS: EPINEPHrine 4 MG in Dextrose 5% in Water 250 ML IVP SCH (21:03)
[2023-07-15] MEDS ORDERED: Sodium Bicarb 50 MEQ/50 ML Abboject 8.4% SYRINGE IVP SCH (21:45)
[2023-07-15 23:06] LABS: #Basophils 0.1 thou/uL (0.0-0.2); #Monocytes 0.2 thou/uL (0.11-0.59); #Neutrophils 13.6 thou/uL (1.40-6.50); %Basophils 0.6 % (0.0-1.0); %Monocytes 1.4 % (0.0-10.0); %Neutrophils 88.1 % (42.0-75.0); Hematocrit 21.2 % (36.0-47.0); Hemoglobin 6.3 g/dL (12.0-16.0); Mean Corpuscular HGB CONC 29.7 g/dL (32.0-36.0); Mean Corpuscular Hemoglobin 34.6 pg (27.0-31.0); Mean Corpuscular Volume 116.5 fl (78.0-98.0); Mean Platelet Volume 11.1 fL (7.4-10.4); RBC Distribution Width 12.7 % (11.5-14.5); Red Blood Cell (RBC) Count 1.82 mill/uL (4.20-5.40); White Blood Cell (WBC) Count 15.5 10x3/uL (4.8-10.8)
[2023-07-15 23:07] LABS: Platelet Count 51 10x3/uL (130-400)
[2023-07-15 23:39] LABS: ALT (SGPT) 24 U/L (8-55); Albumin 2.6 g/dL (3.4-4.8); Alkaline Phosphatase 66 U/L (40-110); Anion Gap 28 mmol/L (10-20); BUN (Urea Nitrogen) 21 mg/dL (9.8-20.1); Bilirubin, Total 1.2 mg/dL (0.2-1.2); Calc. Creatinine Clearance 28 mL/min (70-130); Calcium 7.1 mg/dL (7.8-10.44); Carbon Dioxide 10 mmol/L (23-31); Chloride 106 mmol/L (98-107); Estimated GFR 46; Globulin 0.7 g/dL (2.4-3.5); Glucose 170 mg/dL (83-110); Potassium 4.3 mmol/L (3.5-5.1); Protein, Total 3.3 g/dL (5.8-8.1); Sodium 140 mmol/L (136-145)
[2023-07-15 23:50] LABS: AST (SGOT) 86 U/L (5-34)
[2023-07-15 23:55] LABS: Lactic Acid 23.7 mmol/L (0.5-2.2)
[2023-07-16] MEDS: EPINEPHrine 4 MG in Dextrose 5% in Water 250 ML IVP SCH ×3 (00:28→07:27)
[2023-07-16] MEDS: NOREPINEPHRINE 8 MG/250 ML-D5W 250 ML IVPB SCH ×2 (00:30→03:10)
[2023-07-16] MEDS ORDERED: Sodium Bicarbonate 150 MEQ in Dextrose 5% in Water 1,000 ML IV SCH (00:30)
[2023-07-16] MEDS: Phenylephrine 40 MG/NS 250 ML 40 MG in Premix Bag 1 BAG IVPB SCH ×2 (03:10→06:31)
[2023-07-16 04:41] LABS: Hematocrit 29.6 % (36.0-47.0); Hemoglobin 8.7 g/dL (12.0-16.0); Mean Corpuscular HGB CONC 29.4 g/dL (32.0-36.0); Mean Corpuscular Hemoglobin 33.6 pg (27.0-31.0); Mean Corpuscular Volume 114.3 fl (78.0-98.0); Mean Platelet Volume 10.6 fL (7.4-10.4); RBC Distribution Width 15.2 % (11.5-14.5); Red Blood Cell (RBC) Count 2.59 mill/uL (4.20-5.40); White Blood Cell (WBC) Count 15.9 10x3/uL (4.8-10.8)
[2023-07-16 04:44] LABS: Platelet Count 24 10x3/uL (130-400)
[2023-07-16 04:45] LABS: Delete Auto Diff?? YES; Manual Diff?? YES
[2023-07-16 05:10] LABS: BUN (Urea Nitrogen) 20 mg/dL (9.8-20.1); Calc. Creatinine Clearance 26 mL/min (70-130); Chloride 102 mmol/L (98-107); Estimated GFR 42; Glucose 309 mg/dL (83-110); Potassium 4.4 mmol/L (3.5-5.1); Sodium 133 mmol/L (136-145)
[2023-07-16 05:17] LABS: Band 41 % (5-11); Burr Cells MODERATE= 6-15 cells HPF (0-1); CellaVision Operator ID lab.abc; Large Platelets 1.7 % (0-5); Lymphocytes 3 % (21-51); Metamyelocyte 9 % (0-0); Monocytes 3 % (0-10); Neutrophil 45 % (42-75); Platelet Adequacy Comment Significant decrease; Poikilocytosis MODERATE=16-30 cells HPF (0-5); Smudge Cells 0.9 %; Total Cell Count 116; Toxic Granulation SLIGHT; Vacuoles SLIGHT
[2023-07-16] MEDS: Albumin 25% 25 GM/100 ML BOT IVPB SCH (05:40)
[2023-07-16] MEDS: Vasopressin 20 UNITS in Sodium Chloride 0.9% 50 ML IV SCH (05:46)
[2023-07-16] MEDS: Hydrocortisone Sod Succ/PF 100 mg/2 ml Vial IVP SCH (05:47)
[2023-07-16] MEDS ORDERED: Levothyroxine 100 MCG SDV IVP SCH (06:00)
[2023-07-16 06:10] LABS: Calcium 6.5 mg/dL (7.8-10.44); Carbon Dioxide Less than 8 mmol/L (23-31); Lactic Acid 21.3 mmol/L (0.5-2.2)
[2023-07-16] MEDS ORDERED: Calcium Chloride 1 GM/10 ML Abboject SYRINGE IVP SCH (06:30)
[2023-07-16 07:46] VITALS: BP 85/54
[2023-07-16 08:11] VITALS: TEMP 97
[2023-07-16] MEDS: Famotidine/PF 20 mg/2ml Vial SLOW IVP SCH (10:44)
[2023-07-16] MEDS: Vancomycin HCl 750 MG in Sodium Chloride 0.9% 250 ML 250 ML IVPB SCH (10:45)
[2023-07-16] MEDS: levETIRAcetam 500 MG/5 ML VIAL SLOW IVP SCH (10:45)
[2023-07-16] MEDS: Lactated Ringer's 1,000 ML IV SCH (10:45)
[2023-07-16] MEDS ORDERED: Cefepime 1 GM in Sodium Chloride 0.9% 100 ML IVPB SCH (23:59)
== END 2023-07-16 08:23 | disposition expired | DRG 871 ==
LOC: ERS 08:47 → CCU 15:42
PROVIDERS: ADMIT Hospitalist; ATTEND Hospitalist
PROC: 02HV33Z Insertion of Infusion Device into Superior Vena Cava, Percutaneous Approach (ICD-10-PCS; principal; 2023-07-14)
PROC: 0BH17EZ Insertion of Endotracheal Airway into Trachea, Via Natural or Artificial Opening (ICD-10-PCS; 2023-07-14)
PROC: 0W9930Z Drainage of Right Pleural Cavity with Drainage Device, Percutaneous Approach (ICD-10-PCS; 2023-07-14)
PROC: 04HY32Z Insertion of Monitoring Device into Lower Artery, Percutaneous Approach (ICD-10-PCS; 2023-07-14)
PROC: 4A133B1 Monitoring of Arterial Pressure, Peripheral, Percutaneous Approach (ICD-10-PCS; 2023-07-14)
PROC: 4A133J1 Monitoring of Arterial Pulse, Peripheral, Percutaneous Approach (ICD-10-PCS; 2023-07-14)
PROC: 4A133R1 Monitoring of Arterial Saturation, Peripheral, Percutaneous Approach (ICD-10-PCS; 2023-07-14)
PROC: 3E04329 Introduction of Other Anti-infective into Central Vein, Percutaneous Approach (ICD-10-PCS; 2023-07-14)
PROC: 3E043XZ Introduction of Vasopressor into Central Vein, Percutaneous Approach (ICD-10-PCS; 2023-07-14)
PROC: 30233J1 Transfusion of Nonautologous Serum Albumin into Peripheral Vein, Percutaneous Approach (ICD-10-PCS; 2023-07-14)
PROC: 5A1945Z Respiratory Ventilation, 24-96 Consecutive Hours (ICD-10-PCS; 2023-07-14)
PROC: 30233N1 Transfusion of Nonautologous Red Blood Cells into Peripheral Vein, Percutaneous Approach (ICD-10-PCS; 2023-07-16)
DX: A41.9 Sepsis, unspecified organism (principal); E03.5 Myxedema coma; E43 Unspecified severe protein-calorie malnutrition; G93.41 Metabolic encephalopathy; J18.9 Pneumonia, unspecified organism; R65.21 Severe sepsis with septic shock; J96.01 Acute respiratory failure with hypoxia; J93.83 Other pneumothorax; N39.0 Urinary tract infection, site not specified; R64 Cachexia; Z51.5 Encounter for palliative care; Z66 Do not resuscitate; E03.9 Hypothyroidism, unspecified; K21.9 Gastro-esophageal reflux disease without esophagitis; Z90.49 Acquired absence of other specified parts of digestive tract; Z90.89 Acquired absence of other organs; F41.9 Anxiety disorder, unspecified; D64.9 Anemia, unspecified; Z20.822 Contact with and (suspected) exposure to COVID-19; G40.909 Epilepsy, unspecified, not intractable, without status epilepticus; E88.09 Other disorders of plasma-protein metabolism, not elsewhere classified; Z68.21 Body mass index [BMI] 21.0-21.9, adult
CPT/HCPCS: 31500; 32551; 36415; 36416; 36430; 36556; 51702; 71045; 80048; 80053; 81001; 82533; 82805; 83540; 83550; 83605; 83735; 83880; 84100; 84145; 84436; 84443; 84484; 85025; 85046; 85060; 86850; 86870; 86900; 86901; 86922; 87040; 87081; 87086; 93005; 93010; 94002; 94003; 96365; 96366; 96367; 96375; J0171; J0692; J1650; J1720; J1940; J1953; J1956; J2272; J2704; J3010; J3370; J3370-JW; J3475; J3490; J7050; J7070; J7120; J7999; P9016; P9047; S0028